=== PATIENT | female | born 1940 | race Caucasian/White ===

== ENCOUNTER 2020-12-17 15:58 | Emergency (ER) | payer MEDICARE, SELFPAY ==
[2020-12-17 16:26] VITALS: BP 108/68; PULSE 81; RESP 16; TEMP 37.2; O2SAT 99
--- NOTE | 2020-12-17 16:49 | ED.FEMALEGU ---
HPI - Female Genitourinary General Chief complaint: Urogenital-Female Stated complaint: UTI Time Seen by Provider: 12/17/20 16:49 History of Present Illness HPI Narrative: Nu Foreman is a 80-year-old female with a PMH of hypertension, hypothyroid, and dementia, and high cholesterol who comes to [facility] for a UTI with symptoms that have been going on for 3 weeks. She states she started to have dysuria and burning with urination 3 weeks ago and attempted to go to her doctor last week but got lost going to her doctor's office and so went home has tried to ignore the symptoms and cut back her liquid intake she is now 94 pounds down from 110 which she states is her normal weight. Related Data Home Medications Medication Instructions Recorded Confirmed citalopram [Celexa] 20 mg PO DAILY 05/08/19 05/08/19 donepezil 5 mg PO HS 05/08/19 05/08/19 donepezil 10 mg PO HS 05/08/19 05/08/19 levothyroxine 25 mcg PO DAILY 05/08/19 05/08/19 lisinopril 20 mg PO DAILY 05/08/19 05/08/19 metoprolol succinate 100 mg PO DAILY 05/08/19 05/08/19 simvastatin 40 mg PO HS 05/08/19 05/08/19 tramadol 50 mg PO Q6H PRN 05/08/19 05/08/19 Allergies Allergy/AdvReac Type Severity Reaction Status Date / Time gabapentin Allergy Unknown Rash Verified 05/09/19 17:52 latex Allergy Unknown Rash Verified 05/09/19 17:52 niacin Allergy Unknown Rash Verified 05/09/19 17:52 ATORVASTATIN CALCIUM Allergy Unknown Rash Uncoded 05/09/19 17:52 metal Allergy Unknown Rash Uncoded 05/09/19 17:52 Review of Systems Review of Systems: Narrative: CONSTITUTIONAL: Denies fever, chills, sweats. EYES: Denies visual changes, redness, discharge. ENT: Denies rhinorrhea, congestion, sore throat, otalgia. CARDIOVASCULAR: Denies chest pain, palpitations, edema. RESPIRATORY: Denies dyspnea, wheezing, cough GASTROINTESTINAL: Denies abdominal pain, nausea, vomiting, diarrhea. GENITOURINARY: Has dysuria, no hematuria, abnormal discharge-states she has burning every time she urinates SKIN: Denies rash or itching. NEUROLOGIC: Denies numbness, or focal weakness. PSYCHIATRIC: Denies anxiety or depression. [facility]LY [facility] Past Medical History Medical History Dementia High cholesterol HTN (hypertension) Hypothyroid Family History Family History Other Hypertension Social History Social History Smoking status: Never smoker Alcohol intake: never Substance use: never Gender identity (if verbalized by the patient): Female Comments At time of signature, I agree with nursing past medical, surgical, social and family history. There is no relevant family history pertinent to the presenting complaint. Exam Narrative: Exam Narrative: GENERAL: This is a well-nourished, well-developed patient, in moderate distress. HEAD: normocephalic, atraumatic. EYES: Sclera clear/white. Vision is grossly intact. EARS: External ears normal. Hearing grossly intact. NOSE: External nose normal without nasal discharge, nares without redness, no rhinorrhea. THROAT: Mucous membranes moist, NECK: Neck supple, non-tender CARDIOVASCULAR: Regular rate and rhythm without murmurs, gallops, or rubs. RESPIRATORY: Clear to auscultation. Breath sounds equal bilaterally. No wheezes, rales, or rhonchi. GASTROINTESTINAL: Abdomen soft, nmild tender, SKIN: warm, intact with no suspicious lesions or rash, good texture and turgor. NEURO: awake, alert, and oriented to person, place and time. There were no obvious focal neurologic abnormalities. Steady gait EXTREMITIES: Normal range of motion. BACK: Nontender without deformity Course Course Emergency Course: Patient comes to [facility] for complaints of UTI as she has dysuria and burning and has been trying to get to her doctor's office for a number of weeks her symptoms are started 3 weeks ago but she c
[2020-12-17] MEDS: LIDOCAINE HCL 1% LOCAL INJ 20 ML VIAL IM (17:26)
[2020-12-17] MEDS: cefTRIAXone 250 MG VIAL 500 MG IM (17:26)
== END 2020-12-17 17:46 | disposition home or self-care (01) ==
PROVIDERS: Emergency Provider Nurse Practitioner; PCP Family Medicine
DX: N30.00 Acute cystitis without hematuria (principal); F03.90 Unspecified dementia, unspecified severity, without behavioral disturbance, psychotic disturbance, mood disturbance, and anxiety; E78.00 Pure hypercholesterolemia, unspecified; I10 Essential (primary) hypertension; E03.9 Hypothyroidism, unspecified
CPT/HCPCS: 81003; 87077; 87086; 87186; 96372; 99213; G0463; J0696

== ENCOUNTER 2022-06-01 15:16 | Outpatient (CLI) | payer MEDICARE, SELFPAY ==
--- NOTE | ~2022-06-01 | US_ITS ---
EXAMINATION: US carotid duplex BI DATE: 06/01/2022 16:39 INDICATION: Carotid bruit TECHNIQUE: Grayscale, color Doppler, and pulsed Doppler images of the cervical carotid arteries were obtained. The degree of vessel stenosis is placed in one of the following categories: normal, <50%, 5 0-69%, >=70% but less than near-occlusion, near-occlusion, or total occlusion. Note that percent sten osis relative to normal distal artery lumen diameter is indirectly measured from velocity measurement s as described by Brendan, et al. Radiology 2003; [id number]. COMPARISON: None. FINDINGS: RIGHT: The right common carotid artery (CCA) peak systolic velocity (PSV) is 89 cm/s. The right internal car otid artery (ICA) PSV is 86 cm/s. The right ICA end-diastolic velocity (EDV) is 14 cm/s. The right IC A/CCA PSV ratio is 1.0. Grayscale and color Doppler images yield an estimate of <50% diameter reducti on from plaque in the ICA. The external carotid artery (ECA) PSV is 177 cm/s. There is antegrade flow in the right vertebral artery. LEFT: The left CCA PSV is 124 cm/s. The left ICA PSV is 125 cm/s. The left ICA EDV is 17 cm/s. The left ICA /CCA PSV ratio is 1.0. Grayscale and color Doppler images yield an estimate of <50% diameter reductio n from plaque in the ICA. The ECA PSV is 87 cm/s. There is antegrade flow in the left vertebral arter y. IMPRESSION: 1. <50% stenosis in the right internal carotid artery. 2. <50% stenosis in the left internal carotid artery. Reviewed, dictated and finalized at location A. [employer]
== END 2022-06-01 15:17 | disposition home or self-care (01) ==
PROVIDERS: PCP Family Medicine; Visit Provider Family Medicine
DX: I65.23 Occlusion and stenosis of bilateral carotid arteries (principal)
CPT/HCPCS: 93880

== ENCOUNTER 2023-07-05 14:30 | Inpatient (IN) | payer MEDICARE, SELFPAY ==
[2023-07-05] VITALS (18 sets, daily range): BP systolic 82–177; BP diastolic 41–86; PULSE 78–98; RESP 14–24; TEMP 36.2–36.4; O2SAT 97–100; BMI 18.1
--- NOTE | ~2023-07-05 | US_ITS ---
EXAMINATION: US carotid duplex BI DATE: 07/06/2023 10:00 INDICATION: Syncope. TECHNIQUE: Grayscale, color Doppler, and pulsed Doppler images of the cervical carotid arteries were obtained. The degree of vessel stenosis is placed in one of the following categories: normal, <50%, 5 0-69%, >=70% but less than near-occlusion, near-occlusion, or total occlusion. Note that percent sten osis relative to normal distal artery lumen diameter is indirectly measured from velocity measurement s as described by Brendan, et al. Radiology 2003; [id number]:[id number]. COMPARISON: Ultrasound 06/01/2022, 05/18/14 FINDINGS: RIGHT: The right common carotid artery (CCA) peak systolic velocity (PSV) is 100 cm/s. The right internal ca rotid artery (ICA) PSV is 85 cm/s. The right ICA end-diastolic velocity (EDV) is 10 cm/s. The right I CA/CCA PSV ratio is 0.8. Grayscale and color Doppler images yield an estimate of <50% diameter reduct ion from plaque in the ICA. There is antegrade flow in the right vertebral artery. LEFT: The left CCA PSV is 138 cm/s. The left ICA PSV is 196 cm/s. The left ICA EDV is 34 cm/s. The left ICA /CCA PSV ratio is 1.4. Grayscale and color Doppler images yield an estimate of >=50% diameter reducti on from plaque in the ICA. There is retrograde flow in the left vertebral artery. IMPRESSION: 1. <50% stenosis in the right internal carotid artery. 2. 50-69% stenosis in the left internal carotid artery. 3. Chronic retrograde flow in left vertebral artery, consistent with subclavian steal. Reviewed, dictated and finalized at location A. [employer]
--- NOTE | ~2023-07-05 | XR_ITS ---
EXAM: XR knee LT 3V DATE: 07/07/2023 16:28 HISTORY: knee pain, FALL . COMPARISON: 10/03/2016. FINDINGS: Decreased mineralization. No fracture or dislocation. No lytic or blastic lesion. Tricompa rtmental arthritis, moderate in the medial compartment, with chondrocalcinosis. Quadriceps enthesopat hy. No erosion or periosteal change. Scattered vascular calcification. Small knee joint effusion. IMPRESSION: No acute osseous finding in the left knee. Reviewed, dictated and finalized at location K. P PILER
--- NOTE | ~2023-07-05 | CT_ITS ---
EXAMINATION: CT brain wo con DATE: 07/05/2023 15:07 INDICATION: Head injury. Dizziness. TECHNIQUE: Computed tomography (CT) of the head was performed without intravenous contrast. The mA wa s adjusted according to patient size. Iterative reconstruction technique was employed. Exam dose: 60 5.33 mGy-cm total exam DLP. COMPARISON: 10/03/2016 CT brain FINDINGS: Prominent calcified right vertebral and bilateral carotid siphon internal carotid arteries. There is nonspecific diminished attenuation of the cerebral white matter, likely due to chronic small vessel ischemic changes. There is central and cortical cerebral prominent atrophy. Mild cerebellar atrophy. No intracranial mass lesion or hemorrhage or cerebrovascular accident is evident. No midline shift or mass effect. No subdural or epidural hematoma. The mastoid air cells and paranasal sinuses are normally developed and aerated. No fracture or bone destruction of the cranial vault. IMPRESSION: No skull fracture or acute intracranial finding Calcified cerebral atherosclerosis and chronic small vessel ischemic changes of cerebral white matter and prominent central and cortical cerebral and mild cerebellar atrophy Reviewed, dictated and finalized at Location A. Reviewed, dictated and finalized at location L. E CDL DRIVER IMPRESSION: No skull fracture or acute intracranial finding Calcified cerebral atherosclerosis and chronic small vessel ischemic changes of cerebral white matter and prominent central and cortical cerebral and mild cer ebellar atrophy
--- NOTE | ~2023-07-05 | XR_ITS ---
EXAMINATION: XR chest 1V portable DATE: 07/05/2023 15:02 INDICATION: One day of weakness and dizziness TECHNIQUE: frontal view of the chest was obtained. COMPARISON: Chest radiograph dated 05/29/2014 FINDINGS: Skinfold projects over the lateral right lung. Subtle diffuse reticular pattern projecting over the l ungs and soft tissues from material external to the patient. No other airspace opacities, pulmonary e addie, pleural effusion or pneumothorax. The cardiomediastinal silhouette is normal. Median sternotomy wires and mediastinal surgical clips are seen, likely from prior coronary artery bypass grafting. Th ere are also retained epicardial pacemaker leads. IMPRESSION: 1. No acute cardiopulmonary disease. Reviewed, dictated and finalized at location A. SLATER
--- NOTE | ~2023-07-05 | XR_ITS ---
EXAMINATION: XR hip RT 2V w AP pelvis DATE: 07/05/2023 22:03 INDICATION: Right groin pain post fall TECHNIQUE: Anteroposterior view of the pelvis and anteroposterior and frog-leg lateral views of the r ight hip were obtained. COMPARISON: None. FINDINGS: Lumbar levoscoliosis with severe spondylosis. No fracture. Mild osteoarthritis at the bilateral hip a nd sacroiliac joints. There is stenting at the aortic bifurcation. Prominent atherosclerotic calcific ations in the pelvis and bilateral inguinal regions. Several surgical clips at the right groin. IMPRESSION: 1. No acute osseous abnormality. 2. Lumbar levoscoliosis with severe spondylosis. Reviewed, dictated and finalized at location A. [employer]PERATOR
--- NOTE | 2023-07-05 14:39 | ECG_ITS ---
Measurements Intervals [place] Rate: 87 P: 112 NH: 123 QRS: 176 QRSD: 86 T: 155 QT: 395 QTc: 475 Interpretive Statements SINUS RHYTHM WITH OCCASIONAL VENTRICULAR PREMATURE COMPLEXES LEFT ATRIAL ENLARGEMENT [-0.15mV P WAVE IN V1/V2] RIGHT/LEFT ARM LEAD REVERSAL LEFT VENTRICULAR HYPERTROPHY ABNORMAL ECG NO PREVIOUS ECG AVAILABLE FOR COMPARISON Electronically Signed On 07-06-2023 7:03:31 PROSTHETIST by Tariq Castillo M.D.
[2023-07-05 15:03] LABS: Basophils Absolute Auto 0.1 K/mm3 (0.0-0.1); Basophils Percent Auto 0.5 % (0.2-1.2); Eosinophils Percent Auto 0.1 % (0-4.4); Hematocrit 46.6 % (37.0-47.0); Hemoglobin 15.5 g/dL (12.0-15.0); Immature Granulocyte Absolute 0.07 K/mm3 (0.00-0.031); Immature Granulocyte Percent A 0.4 % (0-0.5); Lymphocytes Absolute Auto 1.36 K/mm3 (0.9-3.2); Lymphocytes Percent Auto 8.2 % (18.3-44.2); Mean Corpuscular HGB Conc 33.3 g/dl (32-36); Mean Corpuscular Hemoglobin 31.8 pg (26-34); Mean Corpuscular Volume 95.7 fl (80-100); Mean Platelet Volume 8.8 fl (7.4-10.4); Monocytes Absolute Auto 0.8 K/mm3 (0.1-0.6); Monocytes Percent Auto 4.7 % (2.6-8.5); Neutrophils Absolute Auto 14.2 K/mm3 (1.3-6.7); Neutrophils Percent Auto 86.1 % (45.5-73.1); Platelet Count Result 364 k/mm3 (150-375); Red Blood Count 4.87 M/mm3 (4.2-5.4); Red Cell Distribution Width 12.2 % (11.5-14.5); White Blood Count 16.5 K/mm3 (4.5-10.0)
[2023-07-05 15:13] LABS: INR 1.1; Prothrombin Time 14.4 Seconds (11.1-14.7)
[2023-07-05 15:14] LABS: Alanine Aminotransferase 21 U/L (6-35); Albumin Level 4.1 g/dL (3.5-5.1); Alkaline Phosphatase 101 U/L (38-126); Anion Gap 15 mmol/L (8-16); Aspartate Amino Transferase 53 U/L (14-36); Bilirubin,Total 1.1 mg/dL (0.2-1.3); Blood Urea Nitrogen 21 mg/dL (7-17); Calcium 9.2 mg/dL (8.4-10.2); Carbon Dioxide 18 mmol/L (22-30); Chloride 110 mmol/L (98-107); Creatine Kinase 1576 U/L (30-135); Estimated Glomerular Filt Rate > 60; Glucose 105 mg/dL (65-110); Partial Thromboplastin Time 28.7 SECONDS (22.3-36.8); Potassium 4.2 mmol/L (3.4-5.0); Sodium 143 mmol/L (137-145)
[2023-07-05 15:40] LABS: Influenza A QL RT-PCR Negative (Negative); Influenza B QL RT-PCR Negative (Negative); RSV RNA, RT-PCR Negative (Negative); SARS-CoV-2 RNA PCR Negative (Negative)
[2023-07-05] MEDS: SODIUM CHLORIDE 0.9% IV 1,000 ML 999 ML IV CONT (15:41)
--- NOTE | 2023-07-05 16:00 | ED.GENADULT ---
HPI - General Adult General Chief complaint: Fall Stated complaint: dizzy/fall, unknown how long on ground Time Seen by Provider: 07/05/23 14:32 History of Present Illness HPI narrative: patient is an 83 year old female who presents ER after falling to the ground. Unknown how long she was on the ground. She lives at home by herself and has history of dementia. She was covered in stool. She denies any pain but does report that she struck her head. Unsure if she lost consciousness. She has no complaints at this time and is very pleasant. Patient's sister is present reports patient has macular degeneration typically just sits in a chair all day watching TV. She feels the patient has become very deconditioned. Related Data Home Medications Medication Instructions Recorded Confirmed citalopram 20 mg tablet (Celexa) 20 mg PO DAILY 05/08/19 05/08/19 donepezil 10 mg tablet 10 mg PO HS 05/08/19 05/08/19 donepezil 5 mg tablet 5 mg PO HS 05/08/19 05/08/19 levothyroxine 25 mcg tablet 25 mcg PO DAILY 05/08/19 05/08/19 lisinopril 20 mg tablet 20 mg PO DAILY 05/08/19 05/08/19 metoprolol succinate 100 mg 100 mg PO DAILY 05/08/19 05/08/19 tablet,extended release 24 hr simvastatin 40 mg tablet 40 mg PO HS 05/08/19 05/08/19 tramadol 50 mg tablet 50 mg PO Q6H PRN Pain 05/08/19 05/08/19 Allergies Allergy/AdvReac Type Severity Reaction Status Date / Time gabapentin Allergy Unknown Rash Verified 05/09/19 17:52 latex Allergy Unknown Rash Verified 05/09/19 17:52 niacin Allergy Unknown Rash Verified 05/09/19 17:52 ATORVASTATIN CALCIUM Allergy Unknown Rash Uncoded 05/09/19 17:52 metal Allergy Unknown Rash Uncoded 05/09/19 17:52 Review of Systems Review of Systems: ROS unobtainable: Yes unobtainable due to mental status PMFSH Past Medical History Medical History (Updated 07/05/23 @ 21:23 by Evelyn Montoya PA-C) Coronary artery disease Dementia Hyperlipidemia Hypertension Hypothyroidism Peripheral vascular disease Tobacco dependence Surgical History Surgical History (Updated 07/05/23 @ 21:23 by Evelyn Montoya PA-C) History of appendectomy History of cataract extraction History of colonoscopy with polypectomy History of partial thyroidectomy Benign adenoma. History of total abdominal hysterectomy History of vascular surgery Bilateral iliac stents. Hx of fusion of cervical spine Family History Family History (Updated 07/05/23 @ 21:23 by Evelyn Montoya PA-C) Other Bladder cancer Diabetes mellitus Hypertension Malignant neoplasm of prostate Social History Social History (Updated 07/05/23 @ 21:24 by Evelyn Montoya PA-C) Social History: Surrogate medical decision maker: Sarina De Leon, sister. Code status: Full code. Smoking packs per day: 1 Smoking cigarettes per day: 20.0 Years smoked: 60 Smoking pack-years: 60.00 Smoking status: Current every day smoker Alcohol intake: never Substance use: never Additional living arrangements comments: The patient lives in her own home in [place]. Additional occupation/education comments: Retired. Exam Narrative: GENERAL: Frail-appearing, well-nourished, and in no acute distress. HEAD: Normocephalic, atraumatic. ENT: Mucous membranes moist. CHEST: Clear to auscultation. No respiratory distress. HEART: Regular rate and rhythm. Normal peripheral pulses. ABDOMEN: Soft, nontender, nondistended. EXTREMITIES: Normal range of motion. No edema. SKIN: Warm, dry, no rash. NEURO: Alert and oriented x2. PSYCH: Normal mood and affect. Course Course Emergency Course: admit to hospitalist service for hydration and IV antibiotics. Patient's sister informed of treatment plan and lab results. Vital Signs Vital signs: Vital Signs Temperature 97.6 F 07/05/23 14:32 Pulse Rate 98 07/05/23 14:32 Respiratory Rate 18 07/05/23 14:32 Blood Pressure 93/65 L 07/05/23 14:32 Pulse Oximetry 100 07/05/23 14:32 Oxygen
[2023-07-05 17:02] LABS: Appearance Urine Clear (Clear); Bacteria Urine None Seen /hpf; Bilirubin Urine Negative (Negative); Blood Urine 1+ (Negative); Color Urine Yellow (Yellow); Glucose Urine UA Negative (Negative); Ketones Urine 4+ mg/dL (Negative); Leukocyte Esterase Ur 1+ LEU/UL (Negative); Nitrate Urine Negative (Negative); Non Pathogenic Casts 0-2; Protein Urine 1+ mg/dL (Negative); RBC Urine 0-2 /hpf (0-2); Specific Grav Ur 1.014 (1.001-1.035); Squamous Epithelial Cell Urine Occasional /hpf (Few); Urobilinogen Urine 0.2 mg/dL (<2.0); WBC Urine 51-100 /hpf; pH Urine 5.5 (5.0-9.0)
[2023-07-05 17:09] LABS: Add Urine Microscopic? YES
[2023-07-05] MEDS: SODIUM CHLORIDE 0.9% IV 1,000 ML 125 ML IV CONT (17:53)
--- NOTE | 2023-07-05 21:14 | PM.IMHP ---
H&P: HPI History of Present Illness Date/Time: 07/05/23 16:15 Chief Complaint: Fall. Narrative: This is a pleasant 83-year-old female smoker with dementia, coronary artery disease, peripheral arterial disease, hypothyroidism, hyperlipidemia, and chronic obstructive pulmonary disease who presented to the emergency department EMS from for evaluation after a fall. The patient provides the following history however she does have some memory loss and her sister provides additional information, with the patient's permission. The patient lives at home alone and ambulates unassisted. She does have some balance issues on occasion but likely has not had any falls for about a year. Sometime early this morning she apparently got up to go to the living room for some reason and that is the last thing she remembers before waking up on the floor. She does not recall having any prodrome prior to the fall and does not remember what happened. She lay on the floor for hours before her sister found her and called 911. She complains of a mild headache in the posterior occiput and right anterior groin. She has redness on her elbows but denies pain there. She also complains of urinary urgency, incontinence, and frequency. She denies fever, chills, sweats, cold and flu symptoms, vertigo, focal weakness, paresthesias, chest pain, pleuritic pain, palpitations, shortness of breath, nausea, vomiting, and diarrhea. She was afebrile on arrival to the ED. Blood pressures were initially in the 80s to 90s systolic but have improved with fluids. Labs were significant for a WBC count of 16.5, hemoglobin 15.5, AST 53, total CK 1576. UA was positive for 4+ ketones, 1+ leukocyte esterase, and 51 to 100 WBC. She is being admitted in this setting Review of Systems Review of Systems: Twelve systems were reviewed and are negative except for as per HPI for [facility], [facility] Past Medical History Medical History (Updated 07/05/23 @ 21:32 by Evelyn Montoya PA-C) Coronary artery disease Dementia Hyperlipidemia Hypertension Hypothyroidism Peripheral vascular disease Tobacco dependence Surgical History Surgical History (Updated 07/05/23 @ 21:23 by Evelyn Montoya PA-C) History of appendectomy History of cataract extraction History of colonoscopy with polypectomy History of partial thyroidectomy Benign adenoma. History of total abdominal hysterectomy History of vascular surgery Bilateral iliac stents. Hx of fusion of cervical spine Family History Family History (Updated 07/05/23 @ 21:23 by Evelyn Montoya PA-C) Other Bladder cancer Diabetes mellitus Hypertension Malignant neoplasm of prostate Social History Social History (Updated 07/05/23 @ 21:24 by Evelyn Montoya PA-C) Social History: Surrogate medical decision maker: Sarina De Leon, sister. Code status: Full code. Smoking packs per day: 1 Smoking cigarettes per day: 20.0 Years smoked: 60 Smoking pack-years: 60.00 Smoking status: Current every day smoker Alcohol intake: never Substance use: never Additional living arrangements comments: The patient lives in her own home in [place]. Additional occupation/education comments: Retired. Meds Home Medications and Allergies Home Medications Medication Instructions Recorded Confirmed Type citalopram 20 mg tablet (Celexa) 20 mg PO DAILY 05/08/19 05/08/19 History donepezil 10 mg tablet 10 mg PO HS 05/08/19 05/08/19 History donepezil 5 mg tablet 5 mg PO HS 05/08/19 05/08/19 History levothyroxine 25 mcg tablet 25 mcg PO DAILY 05/08/19 05/08/19 History lisinopril 20 mg tablet 20 mg PO DAILY 05/08/19 05/08/19 History metoprolol succinate 100 mg 100 mg PO DAILY 05/08/19 05/08/19 History tablet,extended release 24 hr simvastatin 40 mg tablet 40 mg PO HS 05/08/19 05/08/19 History tramadol 50 mg tablet 50 mg PO Q6H PRN Pain 05/08/19 05/08/19 History cephalexin 500 mg capsule 500 mg PO Q12H #10 caps 12/17/20 Rx phenazopyridine
--- NOTE | 2023-07-05 22:27 | ADMGEN ---
This patient, Nu Foreman, was admitted to Medical Room 344-01. Patient/family oriented to hospital policies and general routines including ID bracelet, bed and alarms, visiting hours, pain management, procedures, bathroom and other care routines, personal items, smoking policy, room service/diet, and visiting hours. Information on how to activate the Rapid Response Team has been discussed. Patient/Family are encouraged to report perceived risks to care and to ask questions if they do not understand what they are told or what they should do.
[2023-07-05] MEDS: DEXTROSE 5%/0.45% SOD CHL 1,000 ML 100 ML IV CONT (23:52)
[2023-07-06] VITALS (13 sets, daily range): BP systolic 138–157; BP diastolic 45–67; PULSE 56–101; RESP 16–20; TEMP 36.4–36.8; O2SAT 98–100; BMI 18.1
[2023-07-06 05:46] LABS: Hematocrit 41.8 % (37.0-47.0); Hemoglobin 14.1 g/dL (12.0-15.0); Mean Corpuscular HGB Conc 33.7 g/dl (32-36); Mean Corpuscular Hemoglobin 31.9 pg (26-34); Mean Corpuscular Volume 94.6 fl (80-100); Mean Platelet Volume 8.7 fl (7.4-10.4); Platelet Count Result 322 k/mm3 (150-375); Red Blood Count 4.42 M/mm3 (4.2-5.4); Red Cell Distribution Width 12.4 % (11.5-14.5); White Blood Count 13.3 K/mm3 (4.5-10.0)
[2023-07-06 05:55] LABS: Alanine Aminotransferase 21 U/L (6-35); Albumin Level 3.5 g/dL (3.5-5.1); Alkaline Phosphatase 79 U/L (38-126); Anion Gap 9 mmol/L (8-16); Aspartate Amino Transferase 63 U/L (14-36); Bilirubin,Total 0.9 mg/dL (0.2-1.3); Blood Urea Nitrogen 18 mg/dL (7-17); Calcium 8.2 mg/dL (8.4-10.2); Carbon Dioxide 19 mmol/L (22-30); Chloride 108 mmol/L (98-107); Creatine Kinase 1494 U/L (30-135); Estimated CRCL calculation 36 ml/min; Estimated Glomerular Filt Rate > 60; Glucose 126 mg/dL (65-110); Magnesium 1.9 mg/dL (1.6-2.3); Potassium 3.6 mmol/L (3.4-5.0); Sodium 136 mmol/L (137-145)
[2023-07-06 06:03] LABS: Prealbumin 15.2 mg/dL (17.6-36.0)
[2023-07-06 07:04] LABS: Free T4 Free Thyroxine Reflex 1.09 ng/dL (0.78-2.19)
[2023-07-06 08:34] LABS: Glucose Point of Care 148 mg/dl (65-105)
[2023-07-06] MEDS: METOPROLOL SUCCINATE EXT REL 100 MG TABCR PO (11:03)
[2023-07-06] MEDS: LEVOTHYROXINE SODIUM 50 MCG TABLET PO (11:03)
[2023-07-06] MEDS: DULoxetine HCL 20 MG CAPSULE.DR PO (11:04)
[2023-07-06] MEDS: lisinopriL 20 MG TABLET PO (11:05)
[2023-07-06 12:12] LABS: Glucose Point of Care 197 mg/dl (65-105)
[2023-07-06] MEDS: DEXTROSE 5%/0.45% SOD CHL 1,000 ML 100 ML IV CONT (17:21)
--- NOTE | 2023-07-06 19:51 | PM.IMPN ---
Progress Note: A&P Assessment and Plan (1) At high risk for falls: Code(s): Z91.81 - History of falling Status: Acute Plan Admit patient to medical unit under full inpatient status Continuous cardiopulmonary monitoring Patient has findings consistent with rhabdomyolysis and UTI Patient started on antibiotics in the form of IV Rocephin Her CPK level is elevated at 1494 Patient received 2 L of IV hydration in the ER followed by IV fluids at 125 cc an hour Continue with gentle IV hydration with D5 half normal saline at 75 cc an hour on the floor Strict I&Os Her thyroid function tests are borderline low hands Synthroid dose increased to 50 mcg every morning PT/OT evaluation ordered She would likely need shelter facility placement upon discharge ? Patient seen and examined at bedside during my morning rounds ? Collaborated with patient's nurse at the bedside in detail and addressed all concerns ? Labs, electrolytes, radiology, investigations and test results reviewed ? Consult/Nursing/Ancilliary notes on the chart reviewed and appreciated ? Spoke with patient/family at the bedside and answered all the questions that they had Repeat labs in a.m. Electrolyte replacement as per protocol. Patient will be monitored very closely on the floor. Further recommendations as per the hospital course. I am signing off. Patient's medical care will be taken over by my covering hospitalist attending in am. Time Spent With Patient Time with patient: 25 - 35 minutes Subjective Date/time seen: 07/06/23 19:51 Interval history: Patient lying in bed during my morning. Appears to be weak, tired and fatigued. Complains of soreness in muscles Review of Systems Review of Systems: 14 systems were reviewed with pertinent positives and negatives per HPI. Except as documented in the HPI/progress notes, all other systems were reviewed and are negative. All systems reviewed & are unremarkable except as noted in HPI and below Exam Narrative: PHYSICAL EXAMINATION: Vital signs: Please see the chart General physical exam: Patient lying in bed, appears to be weak, tired and fatigued Head/eyes: Atraumatic, EOMI, PERRLA ENT: +dry mucous membranes, nasal passages clear Neck: Supple, full range of motion, trachea midline CVS: S1 + S2, regular rate and rhythm, no murmurs Respiratory: Bilaterally fair air entry in both lung fagan, mild B/L crackles, symmetric chest expansion, no distress Abdomen: Soft, non-tender, bowel sounds +ve, no organomegaly Extremities: No clubbing, no cyanosis, no edema, no calf tenderness Musculoskeletal: Moves all, decreased range of motion, no muscle spasms, + mild bilateral muscular tenderness on palpation Skin: Warm, dry, no jaundice, no cyanosis Neurological: Awake, alert, oriented x 3, cranial nerves II-XII intact, no focal neurological deficits Psychiatric: Normal mood, non suicidal Objective Data Vital Signs Vital Signs: Vital Signs - 24 hr 07/05/23 21:40 07/05/23 21:30 07/06/23 00:00 Temperature 36.2 C L Pulse Rate 81 74 Respiratory Rate 21 H Blood Pressure 138/68 Pulse Oximetry 100 Oxygen Delivery Room Air 07/06/23 04:00 07/06/23 06:00 07/06/23 06:00 Temperature 36.6 C 36.6 C Pulse Rate 101 H 74 74 Respiratory Rate 20 20 Blood Pressure 157/52 H 157/52 H Pulse Oximetry 99 99 Oxygen Delivery 07/06/23 05:05 07/06/23 08:01 07/06/23 10:05 Temperature 36.8 C Pulse Rate 93 Respiratory Rate 20 Blood Pressure 143/62 H Pulse Oximetry 98 98 Oxygen Delivery Room Air Room Air 07/06/23 11:03 07/06/23 08:00 07/06/23 08:00 Temperature Pulse Rate 85 Respiratory Rate Blood Pressure 157/62 H Pulse Oximetry Oxygen Delivery Room Air 07/06/23 13:25 07/06/23 14:00 07/06/23 15:28 Temperature 36.4 C Pulse Rate 62 Respiratory Rate 16 Blood Pressure 148/59 H 157/67 H Pulse Oximetry 100 Oxygen Delivery Room Air 07/06/23 08:00
--- NOTE | 2023-07-06 21:34 | ECHO_ITS ---
Patient Info Name: Nu Foreman Age: 83 years : 1940 Gender: Female Ht: 50 in Wt: 94 lbs BSA: 1.25 m2 HR: 101 bpm BP: 138 / 68 mmHg Heart Rhythm: Sinus Rhythm Technical Quality: Good Exam Date: 07/06/2023 11:08 AM Exam Location: Echo Lab Patient Status: Inpatient Admit Date: 07/05/2023 Staff Ordering Physician: Evelyn Montoya PA-C Admitting Representative: Katie Farley RDCS Attending Provider: Abdoulaye Bowers MD Referring Physician: Lindsay CONTRERAS; Exam Type: CA echo doppler color flow Study Info Indications - cad, htn, pad R55 - Syncope and collapse Complete two-dimensional, color flow and Doppler transthoracic echocardiogram is performed. Summary 1. Complete two-dimensional, color flow and Doppler transthoracic echocardiogram is performed. 2. Left ventricular chamber dimension is normal. 3. Left ventricular systolic function is normal, estimated at 60-65%. 4. There is mild concentric increased left ventricular wall thickness. 5. The left ventricular diastolic function is grade I diastolic dysfunction. 6. E/e' 13 is mildly elevated. 7. Left atrial chamber dimension is mildly enlarged. 8. There is mild aortic valve sclerosis. 9. No pulmonary hypertension, estimated pulmonary arterial systolic pressure is 31 mmHg. Left Ventricle E/e' 13 is mildly elevated. Left ventricular chamber dimension is normal. Left ventricular systolic function is normal, estimated at 60-65%. There is mild concentric increased left ventricular wall thickness. The left ventricular diastolic function is grade I diastolic dysfunction. Right Ventricle Right ventricular chamber dimension is normal. Right ventricular systolic function is normal. Left Atria Left atrial chamber dimension is mildly enlarged. Right Atria Right atrial chamber dimension is normal. Aortic Valve The aortic valve is trileaflet. There is mild aortic valve sclerosis. There is no aortic valve stenosis. There is no aortic valve regurgitation. Pulmonic Valve There is no pulmonic regurgitation. Mitral Valve There is no mitral valve stenosis. There is no mitral valve regurgitation. Tricuspid Valve There is no tricuspid valve regurgitation. No pulmonary hypertension, estimated pulmonary arterial systolic pressure is 31 mmHg. Pericardium/Pleural There is no pericardial effusion. Inferior Vena Cava Normal inferior vena cava with >50% collapse upon inspiration consistent with normal right atrial pressure, 5 mmHg. Aorta The aortic root size at the sinus of Valsalva is normal. Left Ventricular Outflow Tract Name Value Normal LVOT 2D LVOT Diameter 2.0 cm LVOT Doppler LVOT Peak Gradient 2 mmHg LVOT Mean Gradient 1 mmHg LVOT VTI 13 cm LVOT VTI/AV VTI Ratio 0.5 LVOT Stroke Volume 40 ml LVOT CO 2.6 l/min LVOT CI 2.1 l/min/m2 Pulmonic Valve Name Value Normal
[2023-07-06] MEDS: ENOXAPARIN 30 MG/0.3 ML SYRINGE SUB-Q (21:43)
[2023-07-06] MEDS: DONEPEZIL HCL 10 MG TABLET PO (21:43)
[2023-07-06] MEDS: SIMVASTATIN 20 MG TABLET 40 MG PO (21:43)
[2023-07-06] MEDS: ACETAMINOPHEN 325 MG TABLET 650 MG PO (22:03)
[2023-07-07] VITALS (13 sets, daily range): BP systolic 123–153; BP diastolic 42–58; PULSE 48–67; RESP 14–18; TEMP 36.6–37; O2SAT 96–99
[2023-07-07] MEDS: ACETAMINOPHEN 325 MG TABLET 650 MG PO ×2 (04:24→15:24)
[2023-07-07] MEDS: LEVOTHYROXINE SODIUM 50 MCG TABLET PO (04:24)
[2023-07-07 06:28] LABS: Basophils Absolute Auto 0.1 K/mm3 (0.0-0.1); Basophils Percent Auto 0.5 % (0.2-1.2); Eosinophils Absolute Auto 0.2 K/mm3 (0-0.3); Hematocrit 40.8 % (37.0-47.0); Hemoglobin 13.5 g/dL (12.0-15.0); Immature Granulocyte Absolute 0.05 K/mm3 (0.00-0.031); Immature Granulocyte Percent A 0.5 % (0-0.5); Lymphocytes Absolute Auto 1.59 K/mm3 (0.9-3.2); Lymphocytes Percent Auto 14.8 % (18.3-44.2); Mean Corpuscular HGB Conc 33.1 g/dl (32-36); Mean Corpuscular Hemoglobin 31.5 pg (26-34); Mean Corpuscular Volume 95.3 fl (80-100); Mean Platelet Volume 9.3 fl (7.4-10.4); Monocytes Percent Auto 9.4 % (2.6-8.5); Neutrophils Absolute Auto 7.9 K/mm3 (1.3-6.7); Neutrophils Percent Auto 72.8 % (45.5-73.1); Platelet Count Result 262 k/mm3 (150-375); Red Blood Count 4.28 M/mm3 (4.2-5.4); Red Cell Distribution Width 12.1 % (11.5-14.5); White Blood Count 10.8 K/mm3 (4.5-10.0)
[2023-07-07 06:38] LABS: Anion Gap 6 mmol/L (8-16); Blood Urea Nitrogen 14 mg/dL (7-17); Calcium 8.2 mg/dL (8.4-10.2); Carbon Dioxide 23 mmol/L (22-30); Chloride 106 mmol/L (98-107); Creatine Kinase 777 U/L (30-135); Estimated CRCL calculation 41 ml/min; Estimated Glomerular Filt Rate > 60; Glucose 163 mg/dL (65-110); Magnesium 1.8 mg/dL (1.6-2.3); Phosphorus 2.2 mg/dL (2.5-4.5); Potassium 3.7 mmol/L (3.4-5.0); Sodium 135 mmol/L (137-145)
[2023-07-07] MEDS: lisinopriL 20 MG TABLET PO (08:25)
[2023-07-07] MEDS: METOPROLOL SUCCINATE EXT REL 100 MG TABCR PO (08:25)
[2023-07-07] MEDS: ENOXAPARIN 30 MG/0.3 ML SYRINGE SUB-Q ×2 (08:26→21:04)
[2023-07-07] MEDS: KCL 20 MEQ/D5/0.45% SOD CHL 1,000 ML 75 ML IV CONT ×2 (08:27→21:58)
[2023-07-07] MEDS: DULoxetine HCL 20 MG CAPSULE.DR PO (08:27)
--- NOTE | 2023-07-07 14:30 | P.PNIM_ITS ---
Progress Note: A&P Assessment and Plan (1) Fall from ground level: Code(s): W18.30XA - Fall on same level, unspecified, initial encounter Status: Acute Assessment and Plan: * Status post ground level fall from 07/05/2023. Patient was found down by her sister who called EMS. Patient was on the ground for a long period of time prior to her sister finding her. * Head CT was negative for any acute intracranial process * Hip and pelvis x-ray was negative for any fracture or dislocation * Continue fall precautions * PT and OT were ordered * Case management working on SNF placement * Continue orthostatic blood pressures Q shift * Carotid Dopplers showing less than 50% stenosis in the right internal carotid artery, 50-69% stenosis in the left internal carotid artery, chronic retrograde flow in the left vertebral artery consistent with subclavian steal. * Will get a left knee x-ray patient is complaining of her left knee hurting and this was not done on admission * Echo showing normal LV systolic function with an estimated ejection fraction is 60-65%, grade 1 diastolic dysfunction, normal RV systolic function. * Patient reporting dizziness and lightheadedness, will start meclizine today (2) At high risk for falls: Code(s): Z91.81 - History of falling Status: Acute Assessment and Plan: * See above (3) Dizziness: Code(s): R42 - Dizziness and giddiness Status: Acute Assessment and Plan: * see above (4) Rhabdomyolysis: Code(s): M62.82 - Rhabdomyolysis Status: Acute Assessment and Plan: * Patient found down by sister for an unknown period of time * Initial CK 1576, now down to 777 * Continue with IV fluids * Continue to trend labs (5) Hyperlipidemia: Code(s): E78.5 - Hyperlipidemia, unspecified Status: Acute Assessment and Plan: * Continue simvastatin 40 mg daily and at HS (6) Hypothyroidism: Code(s): E03.9 - Hypothyroidism, unspecified Status: Acute Assessment and Plan: * Continue Synthroid 15 mcg p.o. daily (7) Hypertension: Code(s): I10 - Essential (primary) hypertension Status: Acute Assessment and Plan: * Blood pressures ranging * Continue lisinopril 20 mg daily * Continue metoprolol succinate ER 100 mg p.o. daily (8) Dementia: Code(s): F03.90 - Unspecified dementia, unspecified severity, without behavioral disturbance, psychotic disturbance, mood disturbance, and anxiety Status: Acute Assessment and Plan: * Continue Aricept Subjective Date/time seen: 07/07/23 14:30 Interval history: This is an 83-year-old female who came in on 07/05/2023 for evaluation after a fall. Workup in the hospital included a chest x-ray which was negative for any acute cardiopulmonary disease. Head CT which was negative for any acute intracranial findings, age-related changes noted. Hip and pelvis x-ray did not show any acute osseous abnormality, lumbar levo sclerosis with severe spondylosis. Carotid Doppler study showed less than 50% stenosis in the right internal carotid artery, 50-69% stenosis in the left internal carotid artery, chronic retrograde flow in left vertebral artery consistent with subclavian steal. Echocardiogram was also obtained which showed an LV systolic function that was normal with an estimated ejection fraction of 60-65%, grade 1 diastolic dysfunction, normal RV function. UA shown 1+ protein, 4+ ketones, 1+ blood, 1+ leukocytes, 51-100 urine wbc's. Urine showing Enterococcus species on the final report. She is currently on Rocephin w
--- NOTE | 2023-07-07 14:30 | PM.IMPN ---
Progress Note: A&P Assessment and Plan (1) Fall from ground level: Code(s): W18.30XA - Fall on same level, unspecified, initial encounter Status: Acute Assessment and Plan: Status post ground level fall from 07/05/2023. Patient was found down by her sister who called EMS. Patient was on the ground for a long period of time prior to her sister finding her. Head CT was negative for any acute intracranial process Hip and pelvis x-ray was negative for any fracture or dislocation Continue fall precautions PT and OT were ordered Case management working on SNF placement Continue orthostatic blood pressures Q shift Carotid Dopplers showing less than 50% stenosis in the right internal carotid artery, 50-69% stenosis in the left internal carotid artery, chronic retrograde flow in the left vertebral artery consistent with subclavian steal. Will get a left knee x-ray patient is complaining of her left knee hurting and this was not done on admission Echo showing normal LV systolic function with an estimated ejection fraction is 60-65%, grade 1 diastolic dysfunction, normal RV systolic function. Patient reporting dizziness and lightheadedness, will start meclizine today (2) At high risk for falls: Code(s): Z91.81 - History of falling Status: Acute Assessment and Plan: See above (3) Dizziness: Code(s): R42 - Dizziness and giddiness Status: Acute Assessment and Plan: see above (4) Rhabdomyolysis: Code(s): M62.82 - Rhabdomyolysis Status: Acute Assessment and Plan: Patient found down by sister for an unknown period of time Initial CK 1576, now down to 777 Continue with IV fluids Continue to trend labs (5) Hyperlipidemia: Code(s): E78.5 - Hyperlipidemia, unspecified Status: Acute Assessment and Plan: Continue simvastatin 40 mg daily and at HS (6) Hypothyroidism: Code(s): E03.9 - Hypothyroidism, unspecified Status: Acute Assessment and Plan: Continue Synthroid 15 mcg p.o. daily (7) Hypertension: Code(s): I10 - Essential (primary) hypertension Status: Acute Assessment and Plan: Blood pressures ranging Continue lisinopril 20 mg daily Continue metoprolol succinate ER 100 mg p.o. daily (8) Dementia: Code(s): F03.90 - Unspecified dementia, unspecified severity, without behavioral disturbance, psychotic disturbance, mood disturbance, and anxiety Status: Acute Assessment and Plan: Continue Aricept Subjective Date/time seen: 07/07/23 14:30 Interval history: This is an 83-year-old female who came in on 07/05/2023 for evaluation after a fall. Workup in the hospital included a chest x-ray which was negative for any acute cardiopulmonary disease. Head CT which was negative for any acute intracranial findings, age-related changes noted. Hip and pelvis x-ray did not show any acute osseous abnormality, lumbar levo sclerosis with severe spondylosis. Carotid Doppler study showed less than 50% stenosis in the right internal carotid artery, 50-69% stenosis in the left internal carotid artery, chronic retrograde flow in left vertebral artery consistent with subclavian steal. Echocardiogram was also obtained which showed an LV systolic function that was normal with an estimated ejection fraction of 60-65%, grade 1 diastolic dysfunction, normal RV function. UA shown 1+ protein, 4+ ketones, 1+ blood, 1+ leukocytes, 51-100 urine wbc's. Urine showing Enterococcus species on the final report. She is currently on Rocephin which will be changed to amoxicillin oral today. Patient was treated with IV fluids due to rhabdomyolysis and acute kidney injury. On examination today patient Vital signs are stable, she is afebrile, she is currently room air. Labs today revealed white blood cell count of 10.8, sodium 135, BUN 14, creatinine 0.6, blood sugars ranging 163-197, calcium 8.2, phos 2.2, mag
[2023-07-07] MEDS: MECLIZINE HCL 25 MG TABLET PO (18:23)
--- NOTE | 2023-07-07 19:00 | PC.NURSE ---
On 07/07/23, the student, Shirin Cohn, provided care and completed [facility] documentation on this patient. I have reviewed the student's documentation and agree with the findings.
[2023-07-07] MEDS: MECLIZINE HCL 12.5 MG TABLET PO (21:03)
[2023-07-07] MEDS: DONEPEZIL HCL 10 MG TABLET PO (21:03)
[2023-07-07] MEDS: SIMVASTATIN 20 MG TABLET 40 MG PO (21:03)
[2023-07-07] MEDS: AMOXICILLIN 500 MG CAPSULE PO (21:04)
[2023-07-08] VITALS (13 sets, daily range): BP systolic 46–151; BP diastolic 20–59; PULSE 49–62; RESP 16; TEMP 36.6–37.4; O2SAT 96–97
[2023-07-08 05:14] LABS: Toxigenic C. Diff NEGATIVE (NEGATIVE)
[2023-07-08 06:18] LABS: Basophils Absolute Auto 0.1 K/mm3 (0.0-0.1); Basophils Percent Auto 0.6 % (0.2-1.2); Eosinophils Absolute Auto 0.3 K/mm3 (0-0.3); Eosinophils Percent Auto 3.2 % (0-4.4); Hematocrit 38.9 % (37.0-47.0); Hemoglobin 13.3 g/dL (12.0-15.0); Immature Granulocyte Absolute 0.02 K/mm3 (0.00-0.031); Immature Granulocyte Percent A 0.2 % (0-0.5); Lymphocytes Absolute Auto 2.63 K/mm3 (0.9-3.2); Lymphocytes Percent Auto 29.2 % (18.3-44.2); Mean Corpuscular HGB Conc 34.2 g/dl (32-36); Mean Corpuscular Hemoglobin 32.2 pg (26-34); Mean Corpuscular Volume 94.2 fl (80-100); Mean Platelet Volume 9.7 fl (7.4-10.4); Monocytes Absolute Auto 0.8 K/mm3 (0.1-0.6); Monocytes Percent Auto 9.2 % (2.6-8.5); Neutrophils Absolute Auto 5.2 K/mm3 (1.3-6.7); Neutrophils Percent Auto 57.6 % (45.5-73.1); Platelet Count Result 265 k/mm3 (150-375); Red Blood Count 4.13 M/mm3 (4.2-5.4); Red Cell Distribution Width 11.9 % (11.5-14.5)
[2023-07-08] MEDS: ACETAMINOPHEN 325 MG TABLET 650 MG PO (06:24)
[2023-07-08] MEDS: LEVOTHYROXINE SODIUM 50 MCG TABLET PO (06:25)
[2023-07-08] MEDS: AMOXICILLIN 500 MG CAPSULE PO ×3 (06:25→21:16)
[2023-07-08 06:36] LABS: Anion Gap 0 mmol/L (8-16); Blood Urea Nitrogen 8 mg/dL (7-17); Calcium 8.1 mg/dL (8.4-10.2); Carbon Dioxide 22 mmol/L (22-30); Chloride 112 mmol/L (98-107); Creatine Kinase 433 U/L (30-135); Estimated CRCL calculation 49 ml/min; Estimated Glomerular Filt Rate > 60; Glucose 129 mg/dL (65-110); Potassium 3.8 mmol/L (3.4-5.0); Sodium 134 mmol/L (137-145)
[2023-07-08] MEDS: DULoxetine HCL 20 MG CAPSULE.DR PO (11:15)
[2023-07-08] MEDS: lisinopriL 20 MG TABLET PO (11:15)
[2023-07-08] MEDS: MECLIZINE HCL 12.5 MG TABLET PO ×4 (11:15→21:16)
[2023-07-08] MEDS: ENOXAPARIN 30 MG/0.3 ML SYRINGE SUB-Q ×2 (11:16→21:16)
[2023-07-08] MEDS: SODIUM CHLORIDE 0.9% IV 1,000 ML 75 ML IV CONT (11:19)
--- NOTE | 2023-07-08 15:36 | P.PNIM_ITS ---
Progress Note: A&P Assessment and Plan (1) Fall from ground level: Code(s): W18.30XA - Fall on same level, unspecified, initial encounter Status: Acute Assessment and Plan: * Status post ground level fall from 07/05/2023. Patient was found down by her sister who called EMS. Patient was on the ground for a long period of time prior to her sister finding her. * Head CT was negative for any acute intracranial process * Hip and pelvis x-ray was negative for any fracture or dislocation * Continue fall precautions * PT and OT ordered - SNF recommended * Case management working on SNF placement * Continue orthostatic blood pressures Q shift * Carotid Dopplers showing less than 50% stenosis in the right internal carotid artery, 50-69% stenosis in the left internal carotid artery, chronic retrograde flow in the left vertebral artery consistent with subclavian steal. * left knee XR negative for injury * Echo showing normal LV systolic function with an estimated ejection fraction is 60-65%, grade 1 diastolic dysfunction, normal RV systolic function. * Continue meclizine (2) At high risk for falls: Code(s): Z91.81 - History of falling Status: Acute Assessment and Plan: * See above (3) Dizziness: Code(s): R42 - Dizziness and giddiness Status: Acute Assessment and Plan: * see above (4) Rhabdomyolysis: Code(s): M62.82 - Rhabdomyolysis Status: Acute Assessment and Plan: * Patient found down by sister for an unknown period of time * Initial CK 1576, now down to 433 * Continue with IV fluids - switched to NaCl * Continue to trend labs (5) Hyperlipidemia: Code(s): E78.5 - Hyperlipidemia, unspecified Status: Acute Assessment and Plan: * Continue simvastatin 40 mg daily and at HS (6) Hypothyroidism: Code(s): E03.9 - Hypothyroidism, unspecified Status: Acute Assessment and Plan: * Continue Synthroid 15 mcg p.o. daily (7) Hypertension: Code(s): I10 - Essential (primary) hypertension Status: Acute Assessment and Plan: * Blood pressures ranging * Left side low, documented at 46/20 due to subclavian steal found on CT * RS BP only * Continue lisinopril 20 mg daily * Continue metoprolol succinate ER 100 mg p.o. daily (8) Dementia: Code(s): F03.90 - Unspecified dementia, unspecified severity, without behavioral disturbance, psychotic disturbance, mood disturbance, and anxiety Status: Acute Assessment and Plan: * Continue Aricept Subjective Date/time seen: 07/08/23 15:36 Interval history: Patient in no distress today, labs are improving but she does still report intermittent dizziness. She reports feeling the room is spinning at times. PT/OT rec SNF, awaiting placement. Stool studies pending. Now on amoxicillin for UTI. Switched her fluids to NaCl. Will continue to monitor. Review of Systems Review of Systems: All systems reviewed & are unremarkable except as noted in HPI and below Exam Narrative: General: In no acute distress, well nourished Head: atraumatic, no encephalopathy Eyes: EOMI, PERRLA ENT: moist mucous membranes Neck: supple Cardiac: RRR, Normal S1 and S2. Respiratory: Lungs clear to auscultation Gastrointestinal: soft, non-distended, non-tender, positive bowel sounds. Extremities: no edema Skin: clean, dry, intact. No wounds or lesions. Neuro: Alert and oriented x4, cranial nerves intact, no neuro deficits. Psych: normal mood, norm
--- NOTE | 2023-07-08 15:36 | PM.IMPN ---
Progress Note: A&P Assessment and Plan (1) Fall from ground level: Code(s): W18.30XA - Fall on same level, unspecified, initial encounter Status: Acute Assessment and Plan: Status post ground level fall from 07/05/2023. Patient was found down by her sister who called EMS. Patient was on the ground for a long period of time prior to her sister finding her. Head CT was negative for any acute intracranial process Hip and pelvis x-ray was negative for any fracture or dislocation Continue fall precautions PT and OT ordered - SNF recommended Case management working on SNF placement Continue orthostatic blood pressures Q shift Carotid Dopplers showing less than 50% stenosis in the right internal carotid artery, 50-69% stenosis in the left internal carotid artery, chronic retrograde flow in the left vertebral artery consistent with subclavian steal. left knee XR negative for injury Echo showing normal LV systolic function with an estimated ejection fraction is 60-65%, grade 1 diastolic dysfunction, normal RV systolic function. Continue meclizine (2) At high risk for falls: Code(s): Z91.81 - History of falling Status: Acute Assessment and Plan: See above (3) Dizziness: Code(s): R42 - Dizziness and giddiness Status: Acute Assessment and Plan: see above (4) Rhabdomyolysis: Code(s): M62.82 - Rhabdomyolysis Status: Acute Assessment and Plan: Patient found down by sister for an unknown period of time Initial CK 1576, now down to 433 Continue with IV fluids - switched to NaCl Continue to trend labs (5) Hyperlipidemia: Code(s): E78.5 - Hyperlipidemia, unspecified Status: Acute Assessment and Plan: Continue simvastatin 40 mg daily and at HS (6) Hypothyroidism: Code(s): E03.9 - Hypothyroidism, unspecified Status: Acute Assessment and Plan: Continue Synthroid 15 mcg p.o. daily (7) Hypertension: Code(s): I10 - Essential (primary) hypertension Status: Acute Assessment and Plan: Blood pressures ranging Left side low, documented at 46/20 due to subclavian steal found on CT RS BP only Continue lisinopril 20 mg daily Continue metoprolol succinate ER 100 mg p.o. daily (8) Dementia: Code(s): F03.90 - Unspecified dementia, unspecified severity, without behavioral disturbance, psychotic disturbance, mood disturbance, and anxiety Status: Acute Assessment and Plan: Continue Aricept Subjective Date/time seen: 07/08/23 15:36 Interval history: Patient in no distress today, labs are improving but she does still report intermittent dizziness. She reports feeling the room is spinning at times. PT/OT rec SNF, awaiting placement. Stool studies pending. Now on amoxicillin for UTI. Switched her fluids to NaCl. Will continue to monitor. Review of Systems Review of Systems: All systems reviewed & are unremarkable except as noted in HPI and below Exam Narrative: General: In no acute distress, well nourished Head: atraumatic, no encephalopathy Eyes: EOMI, PERRLA ENT: moist mucous membranes Neck: supple Cardiac: RRR, Normal S1 and S2. Respiratory: Lungs clear to auscultation Gastrointestinal: soft, non-distended, non-tender, positive bowel sounds. Extremities: no edema Skin: clean, dry, intact. No wounds or lesions. Neuro: Alert and oriented x4, cranial nerves intact, no neuro deficits. Psych: normal mood, normal affect Objective Data Vital Signs Vital Signs: Vital Signs - 24 hr 07/07/23 16:00 07/07/23 20:03 07/07/23 20:00 Temperature 98.6 F 98.6 F Pulse Rate 54 L 57 L 57 L Respiratory Rate 14 14 Blood Pressure 138/58 L 138/58 L Pulse Oximetry 97 97 Oxygen Delivery 07/07/23 20:17 07/07/23 20:25 07/07/23 20:00 Temperature 98.6 F Pulse Rate 53 L 56 L Respiratory Rate 14 Blood Pressure 130/56 L Pulse Oximetry 96 Oxygen Delive
--- NOTE | 2023-07-08 18:49 | PC.NURSE ---
On 07/08/23, the student, Christopher Wallace, provided care and completed [facility] documentation on this patient. I have reviewed the student's documentation and agree with the findings.
[2023-07-08] MEDS: DONEPEZIL HCL 10 MG TABLET PO (21:16)
[2023-07-08] MEDS: SIMVASTATIN 20 MG TABLET 40 MG PO (21:16)
[2023-07-09] VITALS (7 sets, daily range): BP systolic 96–207; BP diastolic 53–98; PULSE 58–93; RESP 14–16; TEMP 36.3–36.8; O2SAT 98–99
[2023-07-09] MEDS: SODIUM CHLORIDE 0.9% IV 1,000 ML 75 ML IV CONT ×2 (00:49→13:21)
[2023-07-09] MEDS: AMOXICILLIN 500 MG CAPSULE PO ×2 (05:01→13:21)
[2023-07-09] MEDS: LEVOTHYROXINE SODIUM 50 MCG TABLET PO (05:01)
[2023-07-09 05:53] LABS: Basophils Absolute Auto 0.1 K/mm3 (0.0-0.1); Basophils Percent Auto 0.6 % (0.2-1.2); Eosinophils Absolute Auto 0.3 K/mm3 (0-0.3); Eosinophils Percent Auto 3.8 % (0-4.4); Hematocrit 40.2 % (37.0-47.0); Hemoglobin 13.5 g/dL (12.0-15.0); Immature Granulocyte Absolute 0.03 K/mm3 (0.00-0.031); Immature Granulocyte Percent A 0.4 % (0-0.5); Lymphocytes Absolute Auto 2.79 K/mm3 (0.9-3.2); Lymphocytes Percent Auto 33.3 % (18.3-44.2); Mean Corpuscular HGB Conc 33.6 g/dl (32-36); Mean Corpuscular Hemoglobin 31.8 pg (26-34); Mean Corpuscular Volume 94.6 fl (80-100); Mean Platelet Volume 9.3 fl (7.4-10.4); Monocytes Absolute Auto 0.7 K/mm3 (0.1-0.6); Monocytes Percent Auto 8.6 % (2.6-8.5); Neutrophils Absolute Auto 4.5 K/mm3 (1.3-6.7); Neutrophils Percent Auto 53.3 % (45.5-73.1); Platelet Count Result 282 k/mm3 (150-375); Red Blood Count 4.25 M/mm3 (4.2-5.4); Red Cell Distribution Width 12.2 % (11.5-14.5); White Blood Count 8.4 K/mm3 (4.5-10.0)
[2023-07-09 06:03] LABS: Anion Gap 3 mmol/L (8-16); Blood Urea Nitrogen 7 mg/dL (7-17); Calcium 7.8 mg/dL (8.4-10.2); Carbon Dioxide 23 mmol/L (22-30); Chloride 111 mmol/L (98-107); Creatine Kinase 233 U/L (30-135); Estimated CRCL calculation 45 ml/min; Estimated Glomerular Filt Rate > 60; Glucose 106 mg/dL (65-110); Potassium 3.7 mmol/L (3.4-5.0); Sodium 137 mmol/L (137-145)
[2023-07-09] MEDS: METOPROLOL SUCCINATE EXT REL 100 MG TABCR PO (08:19)
[2023-07-09] MEDS: DULoxetine HCL 20 MG CAPSULE.DR PO (08:19)
[2023-07-09] MEDS: ENOXAPARIN 30 MG/0.3 ML SYRINGE SUB-Q (08:19)
[2023-07-09] MEDS: MECLIZINE HCL 12.5 MG TABLET PO ×3 (08:19→16:54)
[2023-07-09] MEDS: lisinopriL 20 MG TABLET PO (08:19)
--- NOTE | 2023-07-09 14:22 | PM.DS ---
DS: Admitting Diagnosis Discharge Date 07/09/23 Admitting Diagnosis fall DS: Discharge Diagnosis Discharge Diagnosis (1) Fall from ground level: Code(s): W18.30XA - Fall on same level, unspecified, initial encounter Status: Acute Assessment and Plan: Status post ground level fall from 07/05/2023. Patient was found down by her sister who called EMS. Patient was on the ground for a long period of time prior to her sister finding her. Head CT was negative for any acute intracranial process Hip and pelvis x-ray was negative for any fracture or dislocation PT and OT ordered - SNF recommended orthostatic hypotension instructions given with d/c Carotid Dopplers showing less than 50% stenosis in the right internal carotid artery, 50-69% stenosis in the left internal carotid artery, chronic retrograde flow in the left vertebral artery consistent with subclavian steal. left knee XR negative for injury Echo showing normal LV systolic function with an estimated ejection fraction is 60-65%, grade 1 diastolic dysfunction, normal RV systolic function. Continue meclizine QID (2) At high risk for falls: Code(s): Z91.81 - History of falling Status: Acute Assessment and Plan: See above (3) Dizziness: Code(s): R42 - Dizziness and giddiness Status: Acute Assessment and Plan: see above (4) Rhabdomyolysis: Code(s): M62.82 - Rhabdomyolysis Status: Resolved Assessment and Plan: Patient found down by sister for an unknown period of time Initial CK 1576, now down to 233 (5) Hyperlipidemia: Code(s): E78.5 - Hyperlipidemia, unspecified Status: Acute (6) Hypothyroidism: Code(s): E03.9 - Hypothyroidism, unspecified Status: Chronic Assessment and Plan: TSH was borderline on admission Synthroid increased to 50 mcg daily (7) Hypertension: Code(s): I10 - Essential (primary) hypertension Status: Chronic Assessment and Plan: Left side low, documented at 46/20 due to subclavian steal found on CT (8) Dementia: Code(s): F03.90 - Unspecified dementia, unspecified severity, without behavioral disturbance, psychotic disturbance, mood disturbance, and anxiety Status: Chronic Assessment and Plan: Continue Aricept DS: Summary Hospital Course Hospital Course: Patient is an 83 YO female admitted for evaluation after a fall. Workup in the hospital included a chest x-ray which was negative for any acute cardiopulmonary disease. Head CT which was negative for any acute intracranial findings, age-related changes noted. Hip and pelvis x-ray did not show any acute osseous abnormality, lumbar levo sclerosis with severe spondylosis. Carotid Doppler study showed less than 50% stenosis in the right internal carotid artery, 50-69% stenosis in the left internal carotid artery, chronic retrograde flow in left vertebral artery consistent with subclavian steal. Echocardiogram was also obtained which showed an LV systolic function that was normal with an estimated ejection fraction of 60-65%, grade 1 diastolic dysfunction, normal RV function. UA shown 1+ protein, 4+ ketones, 1+ blood, 1+ leukocytes, 51-100 urine WBC's. Urine showing Enterococcus species on the final report. She was transitioned to amoxicillin. Patient was treated with IV fluids due to rhabdomyolysis and acute kidney injury. CK has come down to 233. PT/OT evaluated and patient will go to SNF for continued rehab. Orthostatic hypotension instructions given with d/c. Patient to follow up with PCP. Status at Discharge Functional status at discharge: wheelchair bound Overall status at discharge: patient is not back to baseline Time Spent with Patient Time attestation: Total time spent providing and/or coordinating discharge services: Exam Narrative: General: In no acute distress, well nourished Head: atraumatic, no encephalopathy Eyes: EOMI, PERRLA ENT: tod
[2023-07-09 16:43] LABS: SARS-CoV-2 RNA PCR Negative (Negative)
--- NOTE | 2023-07-10 07:52 | P.CDI_ITS ---
CDI Query Clarification Request Documentation in the medical record indicates that this patient has been admitted with or diagnosed as having Rhabdomyolysis. the following is also documented in the medical record. Total creatinine kinase 07/05/23 1576 07/06/23 1494 Patient was found down for unknown period of time Based on your medical judgement, can you further clarify in the progress notes if known, such as: * Traumatic Rhabdomyolysis * Non- traumatic Rhabdomyolysis * Unknown * Other/ Unspecified <Анна Vasques RN - Last Filed: 07/10/23 07:59> Clarified Diagnosis Clarified Diagnosis: likely Traumatic Rhabdomyolysis <Roxie Feliz APRN - Last Filed: 08/02/23 06:49>
== END 2023-07-09 18:00 | DRG 565 ==
LOC: ANHED 15:15 → ANH3MED 20:34
PROVIDERS: Internal Medicine; Physician Assistant; Admitting Provider Family Medicine; Emergency Provider Emergency Medicine; PCP Family Medicine; Visit Provider Nurse Practitioner
DX: T79.6XXA Traumatic ischemia of muscle, initial encounter (principal); N17.9 Acute kidney failure, unspecified; N39.0 Urinary tract infection, site not specified; I25.10 Atherosclerotic heart disease of native coronary artery without angina pectoris; I73.9 Peripheral vascular disease, unspecified; I10 Essential (primary) hypertension; E03.9 Hypothyroidism, unspecified; E86.0 Dehydration; E78.5 Hyperlipidemia, unspecified; B95.2 Enterococcus as the cause of diseases classified elsewhere; R42 Dizziness and giddiness; H35.30 Unspecified macular degeneration; F03.90 Unspecified dementia, unspecified severity, without behavioral disturbance, psychotic disturbance, mood disturbance, and anxiety; F17.210 Nicotine dependence, cigarettes, uncomplicated; W19.XXXA Unspecified fall, initial encounter; Z20.822 Contact with and (suspected) exposure to COVID-19; Z98.1 Arthrodesis status; Z11.52 Encounter for screening for COVID-19; Z91.81 History of falling
CPT/HCPCS: 36415; 70450; 71045; 73502; 73562; 80048; 80053; 81001; 82550; 82948; 83735; 84100; 84134; 84439; 84443; 84480; 85025; 85027; 85610; 85730; 87045; 87086; 87427; 87449; 87493; 87635; 87637; 93005; 93306; 93880; 96361; 96365; 97110; 97162; 97165; 97530; 97535; 99285; A9270; G0378; J0696; J1650; J3480; J7030

== ENCOUNTER 2023-07-24 11:03 | Emergency (ER) | payer MEDICARE, SELFPAY ==
--- NOTE | ~2023-07-24 | CT_ITS ---
Noncontrast CT scan of the cervical spine Technique: Multiple contiguous axial [address] images of the cervical spine were obtained and rec onstructed in 2D sagittal and coronal planes on the acquisition scanner. Dose reduction technique was used on this scan by utilizing automated exposure control, adjustment of the mA and/or kV according to patient size. The dose-length product (DLP) was 142.39 mGy-cm. Clinical History: Pain Findings: No acute fracture seen. There is 4 mm anterolisthesis of C4 over C5. There is probable part ial fusion across the C5-C6 disc space. There is severe degenerative disc narrowing at C6-C7. There i s moderate degenerative disc narrowing at C4-C5. There is moderate to advanced degenerative change at the articulation of the odontoid process with the anterior arch of C1. There are extensive facet joint degenerative changes in the cervical spine. There is right neural for aminal narrowing at C4-C5. There is bilateral neural foraminal narrowing at C5-C6. There is bilateral neural foraminal narrowing at C6-C7, right worse than left. No prevertebral soft tissue swelling. Impression: No fracture identified. 4 mm anterolisthesis of C4 over C5. Moderate degenerative spondylosis, as above. Reviewed, dictated and finalized at [facility]. [employer] Impression: No fracture identified. 4 mm anterolisthesis of C4 over C5. Moderate degenerative spondylosis, as above.
--- NOTE | ~2023-07-24 | CT_ITS ---
CT head without contrast Indication: Status post fall COMPARISON: 07/05/2023 Technique: Serial scans were obtained through the brain without the administration of contrast. Dose reduction technique was used on this scan by utilizing automated exposure control and iterative recon struction technique. The dose-length product (DLP) was 605.33 mGy-cm. Findings: There is no evidence of intracranial hemorrhage, mass lesion, or acute infarct. The ventri cles and subarachnoid spaces are dilated, consistent with mild to moderate atrophy. Low attenuation regions are seen within the periventricular white matter bilaterally, likely representing changes fro m chronic microvascular ischemic disease. There is no evidence of edema, mass effect or midline shif t. The visualized paranasal sinuses and mastoid air cells are clear. Impression: No intracranial hemorrhage, mass, or acute infarct. Atrophy and chronic white matter changes, as above. Reviewed, dictated and finalized at location . [employer]ER[employer] BAIL[employer] Impression: No intracranial hemorrhage, mass, or acute infarct. Atrophy and chronic white matter changes, as above.
[2023-07-24 11:20] VITALS: BP 158/53; PULSE 88; RESP 18; TEMP 36.4; O2SAT 98
--- NOTE | 2023-07-24 12:08 | ED.FALL ---
HPI - Fall General Chief Complaint: Fall Stated Complaint: glf Time Seen by Provider: 07/24/23 12:07 Source: patient History of Present Illness HPI Narrative: This is a an 83-year-old female who presents after report of a ground level fall. Not on anticoagulation. Denies shortness of breath though she is a 1PPD smoker. Patient states she awoke on the floor and doesn't know how she got there. Can not recall preceding events though thinks she might have been getting up to go to the bathroom. Not having any head pain but is having some right sided neck pain. States she had recently been at [facility] but now lives at home by herself. She woke up to hearing the phone ring but couldn't get up to answer it. Eventually another family member stopped by to check on her. No paresthesias. Triage note states she hasn't been able to control her bladder since this episode; she clarifies that this is not the case. She states at baseline she is incontinent of urine with occasional/frequent leaking and that she has to go now. Unknown how long she was on the ground. Denies history of liver conditions or heart failure. Related Data Home Medications Medication Instructions Recorded Confirmed donepezil 10 mg tablet 10 mg PO HS 05/08/19 07/18/23 lisinopril 20 mg tablet 20 mg PO DAILY 05/08/19 07/18/23 metoprolol succinate 100 mg 100 mg PO DAILY 05/08/19 07/18/23 tablet,extended release 24 hr simvastatin 40 mg tablet 40 mg PO HS 05/08/19 07/18/23 duloxetine 20 mg capsule,delayed 20 mg PO DAILY 07/06/23 07/18/23 release Allergies Allergy/AdvReac Type Severity Reaction Status Date / Time gabapentin Allergy Unknown Rash Verified 05/09/19 17:52 latex Allergy Unknown Rash Verified 05/09/19 17:52 niacin Allergy Unknown Rash Verified 05/09/19 17:52 ATORVASTATIN CALCIUM Allergy Unknown Rash Uncoded 05/09/19 17:52 metal Allergy Unknown Rash Uncoded 05/09/19 17:52 [facility] Past Medical History Medical History (Updated 07/25/23 @ 00:01 by Shanti Napoles) Coronary artery disease Dementia Hyperlipidemia Hypertension Hypothyroidism Peripheral vascular disease Tobacco dependence Surgical History Surgical History (Updated 07/05/23 @ 21:23 by Evelyn Montoya PA-C) History of appendectomy History of cataract extraction History of colonoscopy with polypectomy History of partial thyroidectomy Benign adenoma. History of total abdominal hysterectomy History of vascular surgery Bilateral iliac stents. Hx of fusion of cervical spine Family History Family History Other Bladder cancer Diabetes mellitus Hypertension Malignant neoplasm of prostate Social History Social History Social History: Surrogate medical decision maker: Sarina De Leon, sister. Code status: Full code. Smoking packs per day: 1 Smoking cigarettes per day: 20.0 Years smoked: 63 Smoking pack-years: 63.00 Smoking status: Current every day smoker Tobacco type: cigarettes Alcohol intake: never Substance use: never Do You Feel Safe in your Home?: Yes Lack of Transportation: No Lack of Food: Never True Current Housing: I Have Housing Concerned About Future Housing: No Difficulty Paying Gas/Electric Bills: No Difficulty Paying for Meds: No Currently Unemployed: No Education: Associate Degree Difficulty w/ Childcare or Family Care: No Additional living arrangements comments: The patient lives in her own home in [place]. Additional occupation/education comments: Retired. Spiritual care concerns: No Exam Narrative: GENERAL: Well-appearing, well-nourished, and in no acute distress. HEAD: Normocephalic, atraumatic. EYES: Non injected, non icteric ENT: Nares clear, no rhinorrhea or epistaxis. NECK: Supple. No TTP of cervical spine which are midline w/o bony stepoffs. Mild tenderness to palpation along righ
--- NOTE | 2023-07-24 12:21 | ECG_ITS ---
Measurements Intervals Stella Rate: 61 P: 60 WV: 144 QRS: 51 QRSD: 81 T: 0 QT: 415 QTc: 418 Interpretive Statements SINUS RHYTHM WITH SINUS ARRHYTHMIA LEFT VENTRICULAR HYPERTROPHY AND ST-T CHANGE [VOLTAGE CRITERIA PLUS ST/T ABNORMALITY] COMPARED TO ECG 07/05/2023 14:50:49 [address] NOW PRESENT ST (T WAVE) DEVIATION NOW PRESENT Electronically Signed On 07-24-2023 15:49:10 [employer] by Matias Mendes M.D.
[2023-07-24 15:20] VITALS: BP 143/86; PULSE 71; RESP 15; O2SAT 99
[2023-07-24 15:30] LABS: Basophils Absolute Auto 0.1 K/mm3 (0.0-0.1); Eosinophils Absolute Auto 0.2 K/mm3 (0-0.3); Eosinophils Percent Auto 2.2 % (0-4.4); Hematocrit 40.2 % (37.0-47.0); Immature Granulocyte Absolute 0.02 K/mm3 (0.00-0.031); Immature Granulocyte Percent A 0.3 % (0-0.5); Lymphocytes Absolute Auto 1.89 K/mm3 (0.9-3.2); Lymphocytes Percent Auto 27.6 % (18.3-44.2); Mean Corpuscular HGB Conc 32.3 g/dl (32-36); Mean Corpuscular Hemoglobin 31.6 pg (26-34); Mean Corpuscular Volume 97.6 fl (80-100); Monocytes Absolute Auto 0.5 K/mm3 (0.1-0.6); Monocytes Percent Auto 7.9 % (2.6-8.5); Neutrophils Absolute Auto 4.2 K/mm3 (1.3-6.7); Platelet Count Result 400 k/mm3 (150-375); Red Blood Count 4.12 M/mm3 (4.2-5.4); Red Cell Distribution Width 12.4 % (11.5-14.5); White Blood Count 6.8 K/mm3 (4.5-10.0)
[2023-07-24 15:43] LABS: Appearance Urine Clear (Clear); Bilirubin Urine Negative (Negative); Blood Urine Negative (Negative); Color Urine Yellow (Yellow); Glucose Urine UA Negative (Negative); Ketones Urine Negative (Negative); Leukocyte Esterase Ur Negative LEU/UL (Negative); Nitrate Urine Negative (Negative); Protein Urine Negative (Negative); Specific Grav Ur 1.009 (1.001-1.035); Urobilinogen Urine 0.2 mg/dL (<2.0); pH Urine 6.5 (5.0-9.0)
[2023-07-24 15:51] LABS: Alanine Aminotransferase 15 U/L (6-35); Albumin Level 3.9 g/dL (3.5-5.1); Alkaline Phosphatase 76 U/L (38-126); Anion Gap 2 mmol/L (8-16); Aspartate Amino Transferase 21 U/L (14-36); Bilirubin,Total 0.6 mg/dL (0.2-1.3); Blood Urea Nitrogen 17 mg/dL (7-17); Carbon Dioxide 31 mmol/L (22-30); Chloride 107 mmol/L (98-107); Estimated CRCL calculation 39 ml/min; Estimated Glomerular Filt Rate > 60; Glucose 107 mg/dL (65-110); Potassium 4.2 mmol/L (3.4-5.0); Sodium 140 mmol/L (137-145)
[2023-07-24 15:57] LABS: Troponin I 0.017 ng/mL (0.000-0.034)
[2023-07-24 15:59] LABS: Add Urine Microscopic? NO
[2023-07-24 16:27] LABS: Creatine Kinase 54 U/L (30-135)
[2023-07-24 17:15] VITALS: BP 129/87; PULSE 68; RESP 15; TEMP 36.7; O2SAT 99
== END 2023-07-24 17:15 | disposition home or self-care (01) ==
PROVIDERS: Emergency Provider Student in an Organized Health Care Education/Training Program; PCP Family Medicine
DX: R55 Syncope and collapse (principal); E78.5 Hyperlipidemia, unspecified; I10 Essential (primary) hypertension; E03.9 Hypothyroidism, unspecified; I25.10 Atherosclerotic heart disease of native coronary artery without angina pectoris; F17.210 Nicotine dependence, cigarettes, uncomplicated; W19.XXXA Unspecified fall, initial encounter
CPT/HCPCS: 36415; 70450; 72125; 80053; 81003; 82550; 84484; 85025; 93005; 99284

== ENCOUNTER 2023-11-01 18:47 | Emergency (ER) | payer MEDICARE, SELFPAY ==
--- NOTE | ~2023-11-01 | XR_ITS ---
EXAM: XR shoulder RT min 2V DATE: 11/01/2023 19:13 HISTORY: fall . COMPARISON: 11/02/2014. FINDINGS: Decreased mineralization. No fracture or dislocation. No lytic or blastic lesion. Mild acr omioclavicular and glenohumeral joint osteoarthritis. No erosion or periosteal change. Partially visu alized intact sternotomy wires. Emphysematous changes. IMPRESSION: No acute osseous finding in the right shoulder. Reviewed, dictated and finalized at location K.
--- NOTE | ~2023-11-01 | CT_ITS ---
EXAMINATION: CT brain wo con DATE: 11/01/2023 19:08 INDICATION: fall . TECHNIQUE: Computed tomography (CT) of the head was performed without intravenous contrast. The mA wa s adjusted according to patient size. Iterative reconstruction technique was employed. The dose-lengt h product was 605.33 mGy-cm. COMPARISON: 07/24/2023. FINDINGS: No acute intracranial hemorrhage or extra-axial fluid collection. No hydrocephalus, mass, or herniation. No acute ischemic infarct. Unremarkable dural venous sinus attenuation. No acute osseous abnormality. The aerated spaces are clear. Moderate atrophy and chronic white matter change. Atherosclerotic intracranial calcification. Bilater al lens replacements. 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 IMPRESSION: No acute intracranial process. Reviewed, dictated and finalized at location K.
--- NOTE | ~2023-11-01 | XR_ITS ---
EXAM: XR hip LT 2V w AP pelvis DATE: 11/01/2023 19:13 HISTORY: fall WITH NON SPECIFIC RIGHT SHOULDER AND LEFT HIP PAIN . COMPARISON: 07/05/2023. FINDINGS: Lumbar scoliosis and severe lumbar degenerative disc disease. Scattered atherosclerotic ca lcifications. Vascular stent. Decreased mineralization. Mild bilateral SI joint and hip osteoarthriti s. Mild scattered pelvic enthesopathy. No fracture or dislocation. No lytic or blastic lesion.. IMPRESSION: No acute osseous finding in the pelvis or left hip. Reviewed, dictated and finalized at location K.
--- NOTE | ~2023-11-01 | CT_ITS ---
EXAMINATION: CT cervical spine wo con DATE: 11/01/2023 19:08 INDICATION: fall TECHNIQUE: Computed tomography (CT) of the cervical spine was performed without intravenous contrast. Automated exposure control and iterative reconstruction technique were employed. The dose-length pro duct was 605.33 mGy-cm. COMPARISON: 07/24/2023. FINDINGS: Vertebral Body Alignment: Stable grade 1-2 anterolisthesis at C4-5. Stable trace grade 1 retrolisthes is at C6-7 and T2-3. Reversed lordosis, centered at C5-6. Craniocervical and atlantoaxial alignment: Moderate degenerative change. Alignment intact. Osseous structures/fracture: No evidence of a lytic or blastic process in the visualized spine. No e vidence of acute fracture. C5-6 vertebral body fusion. Cervical soft tissues: The paraspinal soft tissues planes are maintained. Emphysematous changes. Degenerative changes: Degenerative changes, without severe neural foraminal or central canal narrowin g. IMPRESSION: No acute fracture or traumatic malalignment in the cervical spine. Reviewed, dictated and finalized at location K.
[2023-11-01 18:45] VITALS: BP 105/40; PULSE 73; RESP 16; TEMP 36.7; O2SAT 97
--- NOTE | 2023-11-01 18:52 | ED.FALL ---
HPI - Fall General Chief Complaint: Fall Stated Complaint: HEAD INJURY & HIP PAIN S/P FALL History of Present Illness HPI Narrative: 83-year-old female presented to the emergency department for evaluation after having a ground level fall. Patient is from [facility]. Patient had none when his fall striking the back of her head, patient was complaining of some left hip pain initially at the scene but upon arrival to the emergency department patient denies any complaint. Patient did have tenderness to her neck and right shoulder but no other complaint of pain Related Data Home Medications Medication Instructions Recorded Confirmed donepezil 10 mg tablet 10 mg PO HS 05/08/19 07/18/23 lisinopril 20 mg tablet 20 mg PO DAILY 05/08/19 07/18/23 metoprolol succinate 100 mg 100 mg PO DAILY 05/08/19 07/18/23 tablet,extended release 24 hr simvastatin 40 mg tablet 40 mg PO HS 05/08/19 07/18/23 duloxetine 20 mg capsule,delayed 20 mg PO DAILY 07/06/23 07/18/23 release Allergies Allergy/AdvReac Type Severity Reaction Status Date / Time gabapentin Allergy Unknown Rash Verified 11/01/23 18:53 latex Allergy Unknown Rash Verified 11/01/23 18:53 niacin Allergy Unknown Rash Verified 11/01/23 18:53 ATORVASTATIN CALCIUM Allergy Unknown Rash Uncoded 05/09/19 17:52 metal Allergy Unknown Rash Uncoded 05/09/19 17:52 Review of Systems Review of Systems: All systems reviewed & are unremarkable except as noted in HPI and below PMFSH Past Medical History Medical History (Updated 11/01/23 @ 19:41 by Gunner Metcalf MD) Coronary artery disease Dementia Hyperlipidemia Hypertension Hypothyroidism Peripheral vascular disease Tobacco dependence Surgical History Surgical History (Updated 07/05/23 @ 21:23 by Evelyn Montoya PA-C) History of appendectomy History of cataract extraction History of colonoscopy with polypectomy History of partial thyroidectomy Benign adenoma. History of total abdominal hysterectomy History of vascular surgery Bilateral iliac stents. Hx of fusion of cervical spine Family History Family History Other Bladder cancer Diabetes mellitus Hypertension Malignant neoplasm of prostate Social History Social History Social History: Surrogate medical decision maker: Sarina De Leon, sister. Code status: Full code. Smoking packs per day: 1 Smoking cigarettes per day: 20.0 Years smoked: 63 Smoking pack-years: 63.00 Smoking status: Current every day smoker Tobacco type: cigarettes Alcohol intake: never Substance use: never Do You Feel Safe in your Home?: Yes Lack of Transportation: No Lack of Food: Never True Current Housing: I Have Housing Concerned About Future Housing: No Difficulty Paying Gas/Electric Bills: No Difficulty Paying for Meds: No Currently Unemployed: No Education: Associate Degree Difficulty w/ Childcare or Family Care: No Additional living arrangements comments: The patient lives in her own home in [place]. Additional occupation/education comments: Retired. Spiritual care concerns: No Exam Narrative: APPEARANCE: Well appearing, no pain, no distress, well-nourished. HEAD: normocephalic, atraumatic. EYES: PERRLA/EOMI, conjunctivae clear. NOSE: Normal no drainage EARS:TMS clear with good light reflex. THROAT: Pharynx clear, no exudate. NECK: In C-collar, posterior cervical spine tenderness to palpation RESPIRATORY: Airway patent, respirations nonlabored. Clear to auscultation bilaterally, no rales, rhonchi, wheezing. CARDIOVASCULAR: Regular rate and rhythm without murmurs rubs or gallops. ABDOMINAL: Soft, nontender, nondistended, normal bowel sounds MUSCULOSKELETAL: Tenderness to right shoulder, normal range of motion for both hips bilaterally NEURO: Alert. Cranial nerves II through XII intact. Good gait. Good coor
--- NOTE | 2023-11-01 19:51 | PC.NURSE ---
Attempted to call report to [facility] x2. No answer each time.
== END 2023-11-01 22:35 ==
PROVIDERS: Emergency Provider Emergency Medicine; PCP Family Medicine
DX: S09.90XA Unspecified injury of head, initial encounter (principal); S49.91XA Unspecified injury of right shoulder and upper arm, initial encounter; S19.9XXA Unspecified injury of neck, initial encounter; F03.90 Unspecified dementia, unspecified severity, without behavioral disturbance, psychotic disturbance, mood disturbance, and anxiety; I25.10 Atherosclerotic heart disease of native coronary artery without angina pectoris; I10 Essential (primary) hypertension; I73.9 Peripheral vascular disease, unspecified; E89.0 Postprocedural hypothyroidism; E78.5 Hyperlipidemia, unspecified; F17.210 Nicotine dependence, cigarettes, uncomplicated; Z98.49 Cataract extraction status, unspecified eye; Z98.1 Arthrodesis status; Z86.010 Personal history of colon polyps; Z90.710 Acquired absence of both cervix and uterus; W18.30XA Fall on same level, unspecified, initial encounter
CPT/HCPCS: 70450; 72125; 73030; 73502; 99284

== ENCOUNTER 2023-12-27 04:53 | Emergency (ER) | payer MEDICARE, SELFPAY ==
--- NOTE | ~2023-12-27 | CT_ITS ---
EXAMINATION: CT cervical spine wo con DATE: 12/27/2023 05:41 INDICATION: Fall with head injury and neck pain TECHNIQUE: Computed tomography (CT) of the cervical spine was performed without intravenous contrast. Automated exposure control and iterative reconstruction technique were employed. The dose-length pro duct was 116.54 mGy-cm. COMPARISON: None FINDINGS: Mild upper cervical dextrocurvature. Mild reversal of the normal cervical lordosis with 3 mm anteroli sthesis C5 on C6. There is fusion anteriorly and posteriorly at C5-C6 vertebral body heights are norm al. No acute fracture. Severe osteoarthritis at the atlantoaxial articulation. Severe disc height los s with severe bilateral uncovertebral osteoarthritis at C6-C7. Mild to moderate disc height loss at C 2-C3 through C4-C5 with moderate to severe left-sided predominant uncovertebral osteoarthritis. Sever e multilevel cervical facet osteoarthritis. Disc bulges or disc osteophyte complexes resulting in min imal to mild central canal stenosis at each level. Mild to moderate cervical neural foraminal stenosi s. Scattered atherosclerotic calcifications including at the bilateral carotid bulbs and along a norm al variant retroesophageal aberrant right subclavian artery. Mild emphysema in the upper lungs. IMPRESSION: 1. Severe cervical spondylosis with fusion at C5-C6. No acute osseous abnormality. Reviewed, dictated and finalized at location A. IMPRESSION: 1. Severe cervical spondylosis with fusion at C5-C6. No acute osseous abnormali ty.
--- NOTE | ~2023-12-27 | CT_ITS ---
EXAMINATION: CT brain wo con DATE: 12/27/2023 05:41 INDICATION: Fall with head injury TECHNIQUE: Computed tomography (CT) of the head was performed without intravenous contrast. Sagittal and coronal reconstructions were performed. The mA was adjusted according to patient size. Iterative reconstruction technique was employed. The dose-length product was 605.33 mGy-cm. COMPARISON: head CT dated 11/01/2023 FINDINGS: No fracture. No acute intracranial hemorrhage, acute infarction or abnormal extra axial fluid collect ion. There is moderate scattered white matter hypoattenuation consistent with chronic small vessel is chemic disease. Symmetric prominence of the sulci and ventricles consistent with diffuse cerebral vol ume loss. Ventricles are normal and symmetric. No mass/mass effect. Changes of bilateral intraocular lens replacement. The orbits, paranasal sinuses and mastoid air cells are normal. IMPRESSION: 1. Age-related changes. No fracture or acute intracranial process. Reviewed, dictated and finalized at location A.
[2023-12-27 04:54] VITALS: BP 191/61; PULSE 80; RESP 16; TEMP 36.1; O2SAT 96
[2023-12-27 05:07] VITALS: BP 166/109; PULSE 81; RESP 17; O2SAT 96
[2023-12-27] MEDS: ACETAMINOPHEN 500 MG TABLET 1000 MG PO (05:56)
--- NOTE | 2023-12-27 06:05 | ED.FALL ---
HPI - Fall General Chief Complaint: Fall Stated Complaint: NECK PAIN S/P FALL Time Seen by Provider: 12/27/23 06:03 Source: patient Limitations: no limitations History of Present Illness HPI Narrative: left hand dominant 83-year-old female presents From [place] a care home after a fall complaining of neck pain. patient states she slipped on a wet floor this is what caused her to have a mechanical fall striking her head. She denies any vomiting or loss of consciousness. Patient denies being on anticoagulation. patient states she previously was but she stopped taking it because her blood pressure was fine (unclear if she was ever on a blood thinner or if she meant antihypertensive). Medication list from care home is reviewed and patient is not on anticoagulation. She is complaining of some paresthesias in her right hand at all 5 distal fingertips. C collar in place. Related Data Home Medications Medication Instructions Recorded Confirmed donepezil 10 mg tablet 10 mg PO HS 05/08/19 07/18/23 lisinopril 20 mg tablet 20 mg PO DAILY 05/08/19 07/18/23 metoprolol succinate 100 mg 100 mg PO DAILY 05/08/19 07/18/23 tablet,extended release 24 hr simvastatin 40 mg tablet 40 mg PO HS 05/08/19 07/18/23 duloxetine 20 mg capsule,delayed 20 mg PO DAILY 07/06/23 07/18/23 release Allergies Allergy/AdvReac Type Severity Reaction Status Date / Time gabapentin Allergy Unknown Rash Verified 12/27/23 05:08 latex Allergy Unknown Rash Verified 12/27/23 05:08 niacin Allergy Unknown Rash Verified 12/27/23 05:08 ATORVASTATIN CALCIUM Allergy Unknown Rash Uncoded 12/27/23 05:08 metal Allergy Unknown Rash Uncoded 12/27/23 05:08 [facility] Past Medical History Medical History (Updated 12/29/23 @ 17:15 by Sabine Guerin MD) Atherosclerotic heart disease of [place] coronary artery without angina pectoris Chronic obstructive pulmonary disease, unspecified Coronary artery disease Dementia Depression, unspecified Hyperlipidemia Hypertension Hypothyroidism Left hand dominant Peripheral vascular disease Rhabdomyolysis Tobacco dependence Unspecified dementia, unspecified severity, without behavioral disturbance, psychotic disturbance, mood disturbance, and anxiety Urinary tract infection Surgical History Surgical History (Updated 07/05/23 @ 21:23 by Evelyn Montoya PA-C) History of appendectomy History of cataract extraction History of colonoscopy with polypectomy History of partial thyroidectomy Benign adenoma. History of total abdominal hysterectomy History of vascular surgery Bilateral iliac stents. Hx of fusion of cervical spine Family History Family History Other Bladder cancer Diabetes mellitus Hypertension Malignant neoplasm of prostate Social History Social History (Updated 12/27/23 @ 06:12 by Sabine Guerin MD) Social History: Surrogate medical decision maker: Sarina De Leon, sister. Code status: DNR per care home documentation Smoking packs per day: 1 Smoking cigarettes per day: 20.0 Years smoked: 63 Smoking pack-years: 63.00 Smoking status: Current every day smoker Tobacco type: cigarettes Alcohol intake: never Substance use: never Do You Feel Safe in your Home?: Yes Lack of Transportation: No Lack of Food: Never True Current Housing: I Have Housing Concerned About Future Housing: No Difficulty Paying Gas/Electric Bills: No Difficulty Paying for Meds: No Currently Unemployed: No Education: Associate Degree Difficulty w/ Childcare or Family Care: No Living arrangements: care home Additional living arrangements comments: [facility] Additional occupation/education comments: Retired. Spiritual care concerns: No Exam Narrative: GENERAL: Well-appearing, well-nourished, and in no acute distress. HEAD: Normocephalic, atraumatic. EYES: Non injected, non icteric ENT: N
--- NOTE | 2023-12-27 07:08 | PC.NURSE ---
Report given to АННА Barnhart
--- NOTE | 2023-12-27 08:36 | PC.NURSE ---
pt taken off bedpan, placed in own clothes. pt ready to go home
== END 2023-12-27 08:36 ==
PROVIDERS: Emergency Provider Student in an Organized Health Care Education/Training Program; PCP Family Medicine
DX: M47.812 Spondylosis without myelopathy or radiculopathy, cervical region (principal); M43.22 Fusion of spine, cervical region; I25.10 Atherosclerotic heart disease of native coronary artery without angina pectoris; I10 Essential (primary) hypertension; E03.9 Hypothyroidism, unspecified; F03.90 Unspecified dementia, unspecified severity, without behavioral disturbance, psychotic disturbance, mood disturbance, and anxiety; J44.9 Chronic obstructive pulmonary disease, unspecified; F17.210 Nicotine dependence, cigarettes, uncomplicated; W01.0XXA Fall on same level from slipping, tripping and stumbling without subsequent striking against object, initial encounter
CPT/HCPCS: 70450; 72125; 99284; A9270

== ENCOUNTER 2024-02-03 08:56 | Emergency (ER) | payer MEDICARE, SELFPAY ==
--- NOTE | ~2024-02-03 | CT_ITS ---
CT head without contrast Indication: Status post fall COMPARISON: 12/27/2023 Technique: Serial scans were obtained through the brain without the administration of contrast. Dose reduction technique was used on this scan by utilizing automated exposure control and iterative recon struction technique. The dose-length product (DLP) was 529.67 mGy-cm. Findings: There is no evidence of intracranial hemorrhage, mass lesion, or acute infarct. The ventri cles and subarachnoid spaces are dilated, consistent with moderate atrophy. Low attenuation regions are seen within the periventricular white matter bilaterally, likely representing changes from chroni c microvascular ischemic disease. There is no evidence of edema, mass effect or midline shift. The visualized paranasal sinuses and mastoid air cells are clear. There is focal soft tissue swelling at the high posterior scalp. Impression: No intracranial hemorrhage, mass, or acute infarct. Atrophy and chronic white matter changes, as above. Reviewed, dictated and finalized at [facility]. Impression: No intracranial hemorrhage, mass, or acute infarct. Atrophy and chronic white matter changes, as above.
--- NOTE | ~2024-02-03 | CT_ITS ---
Noncontrast CT scan of the cervical spine Technique: Multiple contiguous axial [address] images of the cervical spine were obtained and rec onstructed in 2D sagittal and coronal planes on the acquisition scanner. Dose reduction technique was used on this scan by utilizing automated exposure control, adjustment of the mA and/or kV according to patient size. The dose-length product (DLP) was 101.59 mGy-cm. Clinical History: Pain Findings: No fracture identified. There is 5 mm anterolisthesis of C4 over C5.. There is fusion acro ss the C5-C6 disc space. There is severe degenerative disc narrowing at C6-C7. There are extensive fa cet joint degenerative changes in the cervical spine. There is bilateral neural foraminal narrowing a t C3-C4, C4-C5, and C5-C6, and C6-C7. No prevertebral soft tissue swelling. There is mild emphysema a t the lung bases. Impression: No fracture. 5 mm anterolisthesis of C4 over C5. Degenerative spondylosis, as above. Reviewed, dictated and finalized at location . Impression: No fracture. 5 mm anterolisthesis of C4 over C5. Degenerative spondylosis, as above.
[2024-02-03 09:02] VITALS: BP 99/57; PULSE 52; RESP 16; O2SAT 100
[2024-02-03 10:00] VITALS: PULSE 52; RESP 14; O2SAT 98
[2024-02-03 10:40] VITALS: BP 100/62; PULSE 55; RESP 16; TEMP 36.6; O2SAT 100
--- NOTE | 2024-02-03 10:40 | ED.FALL ---
HPI - Fall General Chief Complaint: Fall Stated Complaint: fell off toilet Time Seen by Provider: 02/03/24 10:06 History of Present Illness HPI Narrative: Patient is an 83-year-old female who presents to the emergency department this morning after a ground level fall which occurred at home. Patient states that she slipped in the bathroom and fell hitting her head on the ground. Patient denies syncopal episodes prior to the fall, states that she remembers the full event and denies any loss of consciousness. Patient is complaining of headache and neck pain upon arrival to the emergency department. Refused to wear cervical collar via EMS. Does have hematoma to her occipital region, otherwise denies any additional injuries. Patient does have a small skin tear to her left elbow, is moving all 4 extremities without any difficulty. Patient is alert and oriented to person, place, time and situation. No additional symptoms or concerns at this time. Related Data Home Medications Medication Instructions Recorded Confirmed donepezil 10 mg tablet 10 mg PO HS 05/08/19 07/18/23 lisinopril 20 mg tablet 20 mg PO DAILY 05/08/19 07/18/23 metoprolol succinate 100 mg 100 mg PO DAILY 05/08/19 07/18/23 tablet,extended release 24 hr simvastatin 40 mg tablet 40 mg PO HS 05/08/19 07/18/23 duloxetine 20 mg capsule,delayed 20 mg PO DAILY 07/06/23 07/18/23 release Allergies Allergy/AdvReac Type Severity Reaction Status Date / Time atorvastatin Allergy Unknown Rash Verified 02/03/24 10:52 gabapentin Allergy Unknown Rash Verified 02/03/24 09:11 latex Allergy Unknown Rash Verified 02/03/24 09:11 niacin Allergy Unknown Rash Verified 12/27/23 05:08 metal Allergy Unknown Rash Uncoded 02/03/24 09:11 Review of Systems Review of Systems: All systems are reviewed and are negative unless stated otherwise in the HPI. [facility] Past Medical History Medical History Atherosclerotic heart disease of [place] coronary artery without angina pectoris Chronic obstructive pulmonary disease, unspecified Coronary artery disease Dementia Depression, unspecified Hyperlipidemia Hypertension Hypothyroidism Left hand dominant Peripheral vascular disease Rhabdomyolysis Tobacco dependence Unspecified dementia, unspecified severity, without behavioral disturbance, psychotic disturbance, mood disturbance, and anxiety Urinary tract infection Surgical History Surgical History History of appendectomy History of cataract extraction History of colonoscopy with polypectomy History of partial thyroidectomy Benign adenoma. History of total abdominal hysterectomy History of vascular surgery Bilateral iliac stents. Hx of fusion of cervical spine Family History Family History Other Bladder cancer Diabetes mellitus Hypertension Malignant neoplasm of prostate Social History Social History Social History: Surrogate medical decision maker: Sarina De Leon, sister. Code status: DNR per [facility] documentation Smoking packs per day: 1 Smoking cigarettes per day: 20.0 Years smoked: 63 Smoking pack-years: 63.00 Smoking status: Current every day smoker Tobacco type: cigarettes Alcohol intake: never Substance use: never Do You Feel Safe in your Home?: Yes Lack of Transportation: No Lack of Food: Never True Current Housing: I Have Housing Concerned About Future Housing: No Difficulty Paying Gas/Electric Bills: No Difficulty Paying for Meds: No Currently Unemployed: No Education: Associate Degree Difficulty w/ Childcare or Family Care: No Living arrangements: [facility] Additional living arrangements comments: [facility] Additional occupation/education comments: Retired. Spiritual care
[2024-02-03 10:41] VITALS: BP 100/62; PULSE 54; RESP 18; O2SAT 100
[2024-02-03] MEDS: ACETAMINOPHEN 325 MG TABLET 650 MG PO (10:49)
--- NOTE | 2024-02-03 11:17 | PC.NURSE ---
RN called [facility] to give report. Nurse unavailable at this time will call ER back
[2024-02-03 11:30] VITALS: BP 100/68; PULSE 55; RESP 16; TEMP 36.6; O2SAT 98
== END 2024-02-03 11:32 ==
PROVIDERS: Emergency Provider Emergency Medicine; PCP Family Medicine
DX: S09.90XA Unspecified injury of head, initial encounter (principal); W01.198A Fall on same level from slipping, tripping and stumbling with subsequent striking against other object, initial encounter; I25.10 Atherosclerotic heart disease of native coronary artery without angina pectoris; J44.9 Chronic obstructive pulmonary disease, unspecified; F03.90 Unspecified dementia, unspecified severity, without behavioral disturbance, psychotic disturbance, mood disturbance, and anxiety; I10 Essential (primary) hypertension; E78.5 Hyperlipidemia, unspecified; E03.9 Hypothyroidism, unspecified; F17.210 Nicotine dependence, cigarettes, uncomplicated
CPT/HCPCS: 70450; 72125; 99284; A9270

== ENCOUNTER 2024-02-04 14:35 | Emergency (ER) | payer MEDICARE, SELFPAY ==
[2024-02-04] VITALS (17 sets, daily range): BP systolic 61–216; BP diastolic 42–91; PULSE 60–90; RESP 14–18; TEMP 37.2; O2SAT 96–100
--- NOTE | ~2024-02-04 | XR_ITS ---
EXAMINATION: XR chest 1V portable DATE: 02/04/2024 15:09 INDICATION: Weakness TECHNIQUE: frontal view of the chest was obtained. COMPARISON: Chest radiograph dated 07/05/2023 FINDINGS: Small nodular calcification is projecting over the bilateral lower lungs which could represent sequel a of old granulomatous disease or costochondral calcifications. No focal airspace opacities, pulmonar y edema, pleural effusion or pneumothorax. Postoperative changes of prior median sternotomy with mult iple additional surgical clips suggesting prior coronary artery bypass grafting. There are multiple a dditional surgical clips projecting over the left mid to upper lung. Heart size is normal. Retained e picardial pacemaker leads projecting along the inferior and right heart borders. IMPRESSION: 1. No acute cardiopulmonary disease. Reviewed, dictated and finalized at location A.
--- NOTE | ~2024-02-04 | CT_ITS ---
EXAMINATION: CTA chest DATE: 02/04/2024 17:08 INDICATION: Syncope TECHNIQUE: Computed tomographic angiography (CTA) of the chest was performed without and with 100 mL Omnipaque-350 intravenous contrast. Volume-rendered 3D-reconstructions of the aorta and large arterie s were constructed by the technologist on a separate workstation. Automated exposure control and iter ative reconstruction technique were employed. The dose-length product was 146.69 mGy-cm. COMPARISON: None. FINDINGS: No pulmonary embolism. Mild emphysema. Minimal dependent atelectasis in the bilateral lower lobes. No pneumonia, pulmonary edema, pleural effusion or pneumothorax. Heart size is normal. Postoperative ch maura of prior median sternotomy and coronary artery bypass grafting. There are retained epicardial pa cemaker leads. No pericardial effusion. Thoracic aorta is normal in caliber with scattered atheroscle rotic calcification but no mammographic significant stenosis or dissection. Normal anatomic variant r etroesophageal aberrant right subclavian artery. 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 No pathologica lly enlarged thoracic lymphadenopathy. There appears be moderate atrophy of the visualized upper pole of the right kidney relative to the left. Calcified and noncalcified atherosclerotic plaque along th e visualized portions of the bilateral renal arteries. Visualized upper abdomen is otherwise unremark able. Moderate thoracic spondylosis. IMPRESSION: 1. No pulmonary embolism. 2. Mild emphysema. 3. 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 4. Mild to moderate atrophy at the visualized upper pole the right kidney which could be due to ische bandar with prominent atherosclerotic disease along the visualized portions of the bilateral renal arter ies. Reviewed, dictated and finalized at location A. IMPRESSION: 1. No pulmonary embolism. 2. Mild emphysema. 3. 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 4. Mild to moderate atrophy at the visualized upper pole the right kidney which could be due to ischemia with prominent atherosclerotic disease along the visu alized portions of the bilateral renal arteries.
--- NOTE | ~2024-02-04 | CT_ITS ---
EXAMINATION: CT brain wo con DATE: 02/04/2024 15:35 INDICATION: Headache and occipital head pain post fall TECHNIQUE: Computed tomography (CT) of the head was performed without intravenous contrast. Sagittal and coronal reconstructions were performed. The mA was adjusted according to patient size. Iterative reconstruction technique was employed. The dose-length product was 605.33 mGy-cm. COMPARISON: head CT dated 02/03/24 FINDINGS: No fracture. No acute intracranial hemorrhage, acute infarction or abnormal extra axial fluid collect ion. Small old lacunar infarct at the left thalamus. There is moderate scattered white matter hypoatt enuation consistent with chronic small vessel ischemic disease. Symmetric prominence of the sulci and ventricles consistent with moderate age-appropriate diffuse cerebral volume loss. No mass/mass effec t. The orbits, paranasal sinuses and mastoid air cells are normal. IMPRESSION: 1. No fracture or acute intracranial process. 2. 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 3. Age-related changes including moderate diffuse volume loss and moderate scattered white matter hyp oattenuation consistent with chronic small vessel ischemic disease. Reviewed, dictated and finalized at location A. IMPRESSION: 1. No fracture or acute intracranial process. 2. 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 3. Age-related changes including moderate diffuse volume loss and moderate scat tered white matter hypoattenuation consistent with chronic small vessel ischemi c disease.
--- NOTE | ~2024-02-04 | CT_ITS ---
EXAMINATION: CT cervical spine wo con DATE: 02/04/2024 15:35 INDICATION: Fall with head injury TECHNIQUE: Computed tomography (CT) of the cervical spine was performed without intravenous contrast. The dose-length product was 95.42 mGy-cm. COMPARISON: None FINDINGS: Moderate osteoarthritis at the atlantoaxial articulation. Mild upper cervical dextrocurvature. Mild r eversal of the normal cervical lordosis with 3 mm anterolisthesis C5 on C6. There is fusion anteriorl y and posteriorly at C5-C6. Vertebral body heights are normal. No acute fracture. Severe osteoarthrit is at the atlantoaxial articulation. Severe disc height loss with severe bilateral uncovertebral oste oarthritis at C6-C7. Mild to moderate disc height loss at C2-C3 through C4-C5 with moderate to severe left-sided predominant uncovertebral osteoarthritis. Severe multilevel cervical facet osteoarthritis . Disc bulges or disc osteophyte complexes resulting in minimal to mild central canal stenosis at eac h level. Mild to moderate cervical neural foraminal stenosis. Scattered atherosclerotic calcification s including at the bilateral carotid bulbs, along the right vertebral artery and along a normal varia nt retroesophageal aberrant right subclavian artery. Mild emphysema in the upper lungs. IMPRESSION: 1. Severe cervical spondylosis with fusion at C5-C6. No acute osseous abnormality. Reviewed, dictated and finalized at location A. IMPRESSION: 1. Severe cervical spondylosis with fusion at C5-C6. No acute osseous abnormali ty.
--- NOTE | 2024-02-04 14:39 | ECG_ITS ---
Test Date: 2024-02-04 14:46:46 Measurements Intervals [place] Rate: 57 P: 89 MI: 154 QRS: 30 QRSD: 82 T: 162 QT: 415 QTc: 406 Interpretive Statements SINUS BRADYCARDIA WITH OCCASIONAL VENTRICULAR PREMATURE COMPLEXES POSSIBLE LEFT ATRIAL ENLARGEMENT LEFT VENTRICULAR HYPERTROPHY AND ST-T CHANGE BORDERLINE ST-T WAVE ABNORMALITY- INFERIOR LEADS BASELINE ARTIFACT- I, II, III, AVR, AVL, AVF, V1-V6 BORDERLINE ECG No previous ECG available for comparison Electronically Signed On 02-04-2024 17:35:07 CDT by Raymundo Hitchcock D.O.
[2024-02-04] MEDS: SODIUM CHLORIDE 0.9% IV 1,000 ML 999 ML IV CONT (15:13)
[2024-02-04 15:19] LABS: Basophils Absolute Auto 0.1 K/mm3 (0.0-0.1); Basophils Percent Auto 0.9 % (0.2-1.2); Eosinophils Absolute Auto 0.3 K/mm3 (0-0.3); Eosinophils Percent Auto 3.3 % (0-4.4); Hematocrit 40.4 % (37.0-47.0); Hemoglobin 13.2 g/dL (12.0-15.0); Immature Granulocyte Absolute 0.02 K/mm3 (0.00-0.031); Immature Granulocyte Percent A 0.2 % (0-0.5); Lymphocytes Absolute Auto 2.04 K/mm3 (0.9-3.2); Lymphocytes Percent Auto 21.5 % (18.3-44.2); Mean Corpuscular HGB Conc 32.7 g/dl (32-36); Mean Corpuscular Hemoglobin 31.1 pg (26-34); Mean Corpuscular Volume 95.3 fl (80-100); Mean Platelet Volume 9.4 fl (7.4-10.4); Monocytes Absolute Auto 0.7 K/mm3 (0.1-0.6); Monocytes Percent Auto 6.9 % (2.6-8.5); Neutrophils Absolute Auto 6.4 K/mm3 (1.3-6.7); Neutrophils Percent Auto 67.2 % (45.5-73.1); Platelet Count Result 365 k/mm3 (150-375); Red Blood Count 4.24 M/mm3 (4.2-5.4); Red Cell Distribution Width 12.5 % (11.5-14.5); White Blood Count 9.5 K/mm3 (4.5-10.0)
[2024-02-04 15:29] LABS: Alanine Aminotransferase 13 U/L (6-35); Albumin Level 3.9 g/dL (3.5-5.1); Alkaline Phosphatase 64 U/L (38-126); Anion Gap 10 mmol/L (4-12); Aspartate Amino Transferase 22 U/L (14-36); Bilirubin,Total 0.3 mg/dL (0.2-1.3); Blood Urea Nitrogen 21 mg/dL (7-17); Calcium 8.5 mg/dL (8.4-10.2); Carbon Dioxide 26 mmol/L (22-30); Chloride 103 mmol/L (98-107); Estimated CRCL calculation 28 ml/min; Estimated Glomerular Filt Rate 53; Glucose 164 mg/dL (65-110); Potassium 4.2 mmol/L (3.4-5.0); Sodium 139 mmol/L (137-145)
--- NOTE | 2024-02-04 16:27 | ED.FALL ---
HPI - Fall General Chief Complaint: Fall Stated Complaint: mult falls Time Seen by Provider: 02/04/24 14:38 History of Present Illness HPI Narrative: Patient is an 83-year-old female who presents to the emergency department this afternoon after sustaining another fall today at her [place] [facility]. Patient was seen at our facility yesterday for a fall and a CT brain and C-spine were negative and she was sent back to her [place] [facility]. Patient states that today she was in the bathroom sitting on the toilet having a bowel movement and felt as though she may have passed out while trying to have a bowel movement. Patient denies any chest pain or shortness of breath, admits to having some pain in her, denies any neck pain. Patient does have a history of dementia but she is currently alert and oriented to person, place and situation. Denies any additional symptoms or concerns at this time. Related Data Home Medications Medication Instructions Recorded Confirmed donepezil 10 mg tablet 10 mg PO HS 05/08/19 07/18/23 lisinopril 20 mg tablet 20 mg PO DAILY 05/08/19 07/18/23 metoprolol succinate 100 mg 100 mg PO DAILY 05/08/19 07/18/23 tablet,extended release 24 hr simvastatin 40 mg tablet 40 mg PO HS 05/08/19 07/18/23 duloxetine 20 mg capsule,delayed 20 mg PO DAILY 07/06/23 07/18/23 release Allergies Allergy/AdvReac Type Severity Reaction Status Date / Time atorvastatin Allergy Unknown Rash Verified 02/03/24 10:52 gabapentin Allergy Unknown Rash Verified 02/03/24 09:11 latex Allergy Unknown Rash Verified 02/03/24 09:11 niacin Allergy Unknown Rash Verified 12/27/23 05:08 metal Allergy Unknown Rash Uncoded 02/03/24 09:11 Review of Systems Review of Systems: All systems are reviewed and are negative unless stated otherwise in the HPI. [facility] Past Medical History Medical History Atherosclerotic heart disease of [place] coronary artery without angina pectoris Chronic obstructive pulmonary disease, unspecified Coronary artery disease Dementia Depression, unspecified Hyperlipidemia Hypertension Hypothyroidism Left hand dominant Peripheral vascular disease Rhabdomyolysis Tobacco dependence Unspecified dementia, unspecified severity, without behavioral disturbance, psychotic disturbance, mood disturbance, and anxiety Urinary tract infection Surgical History Surgical History History of appendectomy History of cataract extraction History of colonoscopy with polypectomy History of partial thyroidectomy Benign adenoma. History of total abdominal hysterectomy History of vascular surgery Bilateral iliac stents. Hx of fusion of cervical spine Family History Family History Other Bladder cancer Diabetes mellitus Hypertension Malignant neoplasm of prostate Social History Social History Social History: Surrogate medical decision maker: Sarina De Leon, sister. Code status: DNR per [place] [facility] documentation Smoking packs per day: 1 Smoking cigarettes per day: 20.0 Years smoked: 63 Smoking pack-years: 63.00 Smoking status: Current every day smoker Tobacco type: cigarettes Alcohol intake: never Substance use: never Do You Feel Safe in your Home?: Yes Lack of Transportation: No Lack of Food: Never True Current Housing: I Have Housing Concerned About Future Housing: No Difficulty Paying Gas/Electric Bills: No Difficulty Paying for Meds: No Currently Unemployed: No Education: Associate Degree Difficulty w/ Childcare or Family Care: No Living arrangements[place] [facility] Additional living arrangements comments: [facility] Additional occupation/education comments: Retired. Spiritual care concerns: No Exam Narrative: General: Alert, awake, a
[2024-02-04 18:33] LABS: Appearance Urine Sl Cloudy (Clear); Blood Urine Trace-intact (Negative); Color Urine Yellow (Yellow); Glucose Urine UA Negative (Negative); Ketones Urine Negative (Negative); Nitrate Urine Negative (Negative); Protein Urine Negative (Negative); pH Urine 6.5 (5.0-9.0)
[2024-02-04 18:34] LABS: Add Urine Microscopic? YES; Bilirubin Urine Negative (Negative); Leukocyte Esterase Ur 3+ LEU/UL (Negative); Urobilinogen Urine 0.2 mg/dL (<2.0)
[2024-02-04 18:41] LABS: Bacteria Urine 2+ /hpf; Need Manual Microscopic Reviewed; Non Pathogenic Casts 0-2; Squamous Epithelial Cell Urine None Seen /hpf (Few); WBC Urine >100 /hpf (0-3)
== END 2024-02-04 22:20 ==
PROVIDERS: Emergency Provider Emergency Medicine; PCP Family Medicine
DX: S09.90XA Unspecified injury of head, initial encounter (principal); W18.30XA Fall on same level, unspecified, initial encounter; I70.8 Atherosclerosis of other arteries; N39.0 Urinary tract infection, site not specified; F03.90 Unspecified dementia, unspecified severity, without behavioral disturbance, psychotic disturbance, mood disturbance, and anxiety; J44.9 Chronic obstructive pulmonary disease, unspecified; I25.10 Atherosclerotic heart disease of native coronary artery without angina pectoris; E78.5 Hyperlipidemia, unspecified; I10 Essential (primary) hypertension; E03.9 Hypothyroidism, unspecified; F17.210 Nicotine dependence, cigarettes, uncomplicated
CPT/HCPCS: 36415; 70450; 71045; 71275; 72125; 80053; 81001; 85025; 87086; 87088; 93005; 96360; 99284; J7030; Q9967